=== PATIENT | male | born 1970 ===

== ENCOUNTER 2020-12-12 15:11 | Outpatient (REF) | payer MEDICAID, SELFPAY | END 2020-12-12 15:12 | disposition home or self-care (01) | LOC: HO.LAB 15:11 | PROVIDERS: Visit Provider Internal Medicine | DX: Z20.822 Contact with and (suspected) exposure to COVID-19 (principal) | CPT/HCPCS: 36415; C9803; U0003; U0005 ==

== ENCOUNTER 2021-01-24 09:02 | Outpatient (REF) | payer MEDICAID, SELFPAY ==
--- NOTE | ~2021-01-24 | XR_ITS ---
EXAMINATION: XR HAND, LEFT CLINICAL INFORMATION: Left hand pain COMPARISON: None TECHNIQUE: PA, lateral, and oblique views of the left hand. FINDINGS: No acute fracture. Diffuse osteopenia. Fusion of the 1st interphalangeal joint. Evaluation of the phalanges is limited due to flexion at the PIP joints. Probable inflammatory arthritis of the 4th PIP joint which may be active, with soft tissue swelling. No suspicious soft tissue calcifications. XR/XR hand LT min 3V IMPRESSION: Possible active inflammatory arthritis of the 4th PIP joint. Probable remote inflammatory arthritis of the 1st interphalangeal joint with fusion. Diffuse osteopenia. No acute fracture.
[2021-01-24 10:11] LABS: Hematocrit 38.9 % (42-52); Hemoglobin 12.7 g/dl (14.0-18.0); Mean Corpuscular HGB Conc 32.6 g/dl (31.0-36.0); Mean Corpuscular Hemoglobin 31.5 pg (27.0-33.0); Mean Corpuscular Volume 96.5 fL (80-98); Mean Platelet Volume 9.8 fL (9.4-12.4); Platelet Count 244 X10*3/uL (160-400); Red Blood Count 4.03 X10*6/uL (4.60-5.80); Red Cell Distribution Width 11.7 % (11.0-16.0); White Blood Count 3.9 X10*3/uL (4.8-10.8)
[2021-01-24 10:30] LABS: Alanine Aminotransferase 19 U/L (0-40); Albumin Level 4.3 g/dL (3.5-5.0); Alkaline Phosphatase 84 U/L (39-117); Anion Gap 12 (12-20); Aspartate Amino Transferase 20 U/L (5-37); Bilirubin Total 0.8 mg/dL (0.0-1.0); Blood Urea Nitrogen 21 mg/dL (9-16); Calcium 9.3 mg/dL (8.4-10.2); Carbon Dioxide 31 mmol/L (22-29); Chloride 107 mmol/L (96-108); Cholesterol 213 mg/dL; Estimated Glomerular Filt Rate > 60; Glucose Random 124 mg/dL (60-115); HDL Cholesterol 39 mg/dL; LDL Cholesterol Calculated 156 mg/dl; Potassium 4.5 mmol/L (3.3-5.1); Sodium 145 mmol/L (135-145); Total Protein 7.6 g/dL (6.5-8.0); Triglycerides 90 mg/dL
[2021-01-24 10:49] LABS: Thyroid Stimulating Hormone 1.49 uIU/mL (0.32-4.0)
[2021-01-24 11:10] LABS: Erythrocyte Sedimentation Rate 11 MM/HR (0-15)
== END 2021-01-24 09:03 | disposition home or self-care (01) ==
LOC: HO.LAB 09:02
PROVIDERS: PCP Internal Medicine; Visit Provider Internal Medicine
DX: E78.00 Pure hypercholesterolemia, unspecified (principal); I10 Essential (primary) hypertension; M79.642 Pain in left hand
CPT/HCPCS: 36415; 73130; 80053; 80061; 84443; 84550; 85027; 85652

== ENCOUNTER → 2021-05-15 12:48 | Outpatient (BNVA) | payer MEDICAID, SELFPAY | PROVIDERS: PCP Internal Medicine; Referring Provider Internal Medicine; Visit Provider Nurse Practitioner Family | DX: Z12.11 Encounter for screening for malignant neoplasm of colon (principal) | CPT/HCPCS: 99202 ==

== ENCOUNTER 2021-07-05 10:11 | Day surgery (SDC) | payer MEDICAID, SELFPAY ==
[2021-07-05 10:32] VITALS: BP 159/76; PULSE 57; RESP 18; TEMP 36.4; O2SAT 96; BMI 29.9
--- NOTE | 2021-07-05 10:35 | PC.NURSE ---
no meds taken today
--- NOTE | 2021-07-05 10:57 | P.CONAN_ITS ---
[facility] Past Medical History Medical History (Updated 06/29/21 @ 14:49 by Allie Lara, RN) Anemia Arthritis HTN (hypertension) Hypercholesterolemia Family History Family history of problems with anesthesia: No Surgical History Surgical History (Updated 06/29/21 @ 14:49 by Allie Lara, RN) No significant past surgical history History of Problems with Anesthesia: No Social History Social History Patient Tobacco Use Status: Never used Tobacco Use of substances other than those prescribed or required for medical reasons: No Have you been hit, kicked, punched, or otherwise hurt by someone within the past year? If so, by whom?: No Are you DNR?: No Advance Directives: No Advance Directives Information Provided: No Recently lost weight without trying: No Nutrition Risks: No Nutritional Risk Meds Allergies Allergy/AdvReac Type Severity Reaction Status Date / Time No Known Allergies Allergy Verified 06/29/21 14:49 Home Medications Medication Instructions Recorded Confirmed Last Taken Type amlodipine 5 mg tablet 5 mg PO DAILY 05/15/21 06/29/21 Unknown History simvastatin 40 mg tablet 40 mg PO QPM 05/15/21 06/29/21 Unknown History Exam Exam Date and Time: July 05, 2021 1057 Height,Weight and Vital Signs: Height 5 ft 8 in Weight 89.358 kg Last Vital Signs Temp 97.5 F 07/05/21 10:32 Pulse 57 07/05/21 10:32 Resp 18 07/05/21 10:32 BP 159/76 H 07/05/21 10:32 Pulse Ox 96 07/05/21 10:32 Airway Mallampati Class: II TM Dist: >3cm Neck ROM: Full Heart: rrr Lungs: cta Assessment and Plan Assessment Anesthesia Assessment: Anesthesia Plan Discussed and Chart Reviewed Final Anesthetic Review Family History of Problems with Anesthesia: No History of Problems with Anesthesia: No NPO: Yes ASA Class: II Final Preanesthetic Review: No Changes in Pt Med Stat, Meds/Allgs Chart Reviewed and Consent Obtained/Reviewed Patient Risk: Intermediate Procedure Risk: Intermediate Anesthetic Plan Anesthetic Plan: MAC: Disposition: Standard PACU
[2021-07-05] MEDS: Lactated Ringers 1,000 ML 50 ML IVCONT (11:01)
--- NOTE | 2021-07-05 11:27 | MHC.SHP ---
Pre-Procedural Eval Section A Date of Service: 07/05/21 Section B Chief Complaint: Screening Relevant Family History (Specify if Yes): No Relevant Social History: None Present Medications: see Short Stay Collaborative assessment Medical History: Significant History (Anemia Arthritis HTN (hypertension) Hypercholesterolemia) History of Previous Operations: No relevant previous surgery Allergies: Allergies Allergy/AdvReac Type Severity Reaction Status Date / Time No Known Allergies Allergy Verified 06/29/21 14:49 Review of Systems Sugical H&P ROS: Negative: Constitution, Cardiovascular, Respiratory, Neurological, Psychiatric, Hem-Onc, Allergic/Immunologic, Gastrointestinal, Genitourinary, Musculoskeletal, Integumentary, Endocrine and Eyes/Ears/Nose/Throat Exam Surgical H&P Exam: Normal: HEENT, Normal: Heart, Normal: Lungs, Normal: Extremities, Normal: Abdomen, Normal: Skin and Normal: Neurological Plan Diagnosis/Plan: Unchanged I have reviewed the history and physical and performed a pertinent physical examination on my patient. No changes have occurred unless specified.
--- NOTE | 2021-07-05 11:28 | P.OP_ITS ---
Operative Note Operative Note Date of Service: 07/05/21 Narrative: Operative Information Procedure Description: Colonoscopy COLONOSCOPY Instrument: Olympus variable stiffness pediatric scope 190L Colonoscopy Monitoring: Vital signs and clinical assessment, continuous EKG monitoring, Pulse oximetry, Carbon Dioxide monitoring and blood pressure monitoring were done throughout the procedure. Colon withdrawal time was 11 minutes. Procedure: The patient was placed in the left lateral decubitis position and pre-procedure medications were administered. After a digital rectal examination of the ano-rectum, the video colonoscope was inserted into the rectum and advanced through the colon to the cecum/TI. The colonoscope was slowly withdrawn in a retrograde panoramic fashion and the colon mucosa was carefully examined including a retroflexed view of the rectum. Findings and interventions are described below. Procedure Difficulty:moderate, pressure applied to get to cecum Findings: Terminal Ileum-normal Cecum:normal Ascending Colon: normal, few diverticula seen Transverse Colon -normal Descending Colon: 8-10 mm sessile polyp removed with cold snare Sigmoid Colon: scattered diverticula noted Rectum: Retroflexion with moderate sized internal hemorrhoids, grade I Anorectum - normal Colon preparation: [place] Bowel Preparation Scale Right colon; 2 Transverse colon: 2 Left colon; 1 (0 = Unprepared colon segment with mucosa not seen due to solid stool that ca nnot be cleared. 1 = Portion of mucosa of the colon segment seen, but other areas of the colon segment not well seen due to staining, residual stool and/or opaque liquid. 2 = Minor amount of residual staining, small fragments of stool and/or opaque liquid, but mucosa of colon segment seen well. 3 = Entire mucosa of colon segment seen well with no residual staining, small fragments of stool or opaque liquid) Impression and Post Procedure Diagnosis: polyp internal hemorrhoids diverticular disease Plan: High fiber diet leaflet Avoid straining at stool, epsom salts and sitz bath, anusol supps or cream Repeat Colonoscopy in 5 years due to left sided prep or earlier if clinically indicated Above findings were reviewed with the patient and relevant handouts were provided if indicated.
--- NOTE | 2021-07-05 11:28 | PM.OP ---
Brief Operative Note Date of Service: 07/05/21 Pre-op diagnosis: colon screening Post-op diagnosis: same Procedure: see op note Surgeon: Ariel Gacsa MD Anesthesia: MAC Was an Bench Molder Apprentice used for this Procedure?: No Estimated blood loss (mL): 0 Condition: stable Disposition: PACU
[2021-07-05 12:07] VITALS: BP 111/69; PULSE 70; RESP 16; TEMP 36.8; O2SAT 94
[2021-07-05 12:22] VITALS: BP 129/78; PULSE 50; RESP 16; TEMP 36.2; O2SAT 97
== END 2021-07-05 13:01 ==
LOC: HO.SSS 10:12
PROVIDERS: PCP Internal Medicine Gastroenterology; Visit Provider Internal Medicine Gastroenterology
PROC: 0DJD8ZZ Inspection of Lower Intestinal Tract, Via Natural or Artificial Opening Endoscopic (ICD-10-PCS; CPT 45378; principal; 2021-07-05 11:40)
DX: Z12.11 Encounter for screening for malignant neoplasm of colon (principal); K63.5 Polyp of colon; K57.30 Diverticulosis of large intestine without perforation or abscess without bleeding; K64.0 First degree hemorrhoids; I10 Essential (primary) hypertension
CPT/HCPCS: 45380; 88305

== ENCOUNTER 2022-06-22 11:55 | Outpatient (REF) | payer MEDICAID, SELFPAY ==
[2022-06-22 12:25] LABS: COVID-19 Test Negative (Negative)
== END 2022-06-22 11:56 | disposition home or self-care (01) ==
LOC: HO.LAB 11:55
PROVIDERS: Visit Provider Internal Medicine
DX: Z20.822 Contact with and (suspected) exposure to COVID-19 (principal)
CPT/HCPCS: 87635; C9803

== ENCOUNTER 2023-04-10 12:25 | Outpatient (REF) | payer MEDICAID, SELFPAY ==
--- NOTE | ~2023-04-10 | XR_ITS ---
EXAMINATION: XR HAND, RIGHT CLINICAL INFORMATION: Pain in right hand COMPARISON: None available. TECHNIQUE: PA, lateral, and oblique views of the right hand. FINDINGS: The bones are intact. No fracture. Alignment is anatomic. There is mild degenerative change of the second metacarpophalangeal joint. The radiocarpal joint is narrow. There is a 1.6 cm soft tissue protrusion along the dorsal aspect of the proximal phalanx of the middle finger, just proximal to the PIP joint. XR/XR hand RT min 3V IMPRESSION: 1. No acute bony abnormality. 2. Soft tissue protrusion along the dorsal aspect of the proximal phalanx of the middle finger. Ultrasound could be obtained for further evaluation.
== END 2023-04-10 12:26 | disposition home or self-care (01) ==
LOC: HO.HOSX 12:25
PROVIDERS: Visit Provider Physician Assistant
DX: M79.641 Pain in right hand (principal); R22.31 Localized swelling, mass and lump, right upper limb
CPT/HCPCS: 73130; 99202

== ENCOUNTER 2023-04-29 09:21 | Day surgery (SDC) | payer MEDICAID, SELFPAY ==
[2023-04-29 10:03] VITALS: BP 145/88; PULSE 60; RESP 18; TEMP 36.3; O2SAT 95; BMI 28.2
--- NOTE | 2023-04-29 10:47 | W.PM.OPN ---
Operative Note Operative Note Date of Service: 04/29/23 Narrative: Operative Note Preop diagnosis: 1. right middle finger dorsal PIP mass Postop diagnosis: same Procedure: 1. right middle finger excision of dorsal PIP mass , and debulking of gouty tophi from an extensor tendon mechanism Surgeon: Ludy Burgess MD Anesthesia: digital block using 1% lidocaine with epinephrine Findings: both more liquid and more solid forms of gouty tophi. Gouty tophi invasion of the extensor mechanism involving both the central extensor tendon and also the lateral bands. EBL: Less than 5 mL Tourniquet time: None Specimens: right middle finger mass sent for histopathology Complications: None Disposition: Brought to recovery room in stable condition Plan: Follow-up for 7-10 days for wound check and suture removal and to check Cultures and pathology It is imperative that the patient have a good conversation with his primary care physician about good medical management of his gout to avoid further damage to the joints and extensor mechanisms of the hands. Indications: The patient is 52 years old, with right middle finger dorsal PIP mass . The risks and benefits of operative treatment including but not limited to risk of damage to blood vessels, nerves, tendons, infection, persistent pain, persistent symptoms, recurrence or possible need for additional surgery were discussed with the patient and the patient wishes to proceed with surgery. Procedure: Once consent was obtained a digital block was performed in the preop area using a combination of 1% lidocaine with epinephrine. The patient was then brought back to the operating suite and placed on the operative table in supine position. A tourniquet was applied to the proximal aspect of the right upper extremity and the limb was prepped and draped in a standard surgical fashion. the tourniquet was not inflated during the case. Once assured we had a good block I then made a lazy-S incision over the dorsal aspect of the right middle finger PIP joint. Incision was made through the skin to the subcutaneous tissues using a 15. Blade. I immediately found white gritty fluid material most likely consistent with tophaceous gout. I took a culture of this material. Further dissection down to the level of the extensor tendons showed gouty tophi invasion of both the central extensor tendon and also of the lateral bands. There was significant involvement in these structures , however the extensor mechanisms were intact. I then carefully debulked both the central extensor tendon and the radial lateral band using iris scissors and a small rongeur. I sent some of this material for histopathologic review. Once satisfied with Our debridement, excision and extensor mechanism to bulking of the extensor mechanism, and the wound was copiously irrigated with normal saline and hemostasis was obtained with a brief period of local pressure. The skin edges were reapproximated with some 5.0 nylon suture material and a sterile dressing was applied. The patient appears to have tolerated the procedure well and with no complications. All digits were well vascularized at the conclusion of the case.
--- NOTE | 2023-04-29 11:35 | MHC.SHP ---
Pre-Procedural Eval Section A Date of Service: 04/29/23 The patient is an INPATIENT: No Changes since office visit: No Cold of Flu in the past 2 weeks, No New Medical Problems, No Changes in Medication and No Patient answered all questions The History & Physical has been completed within 30 days and I have reviewed it.: Yes Section B Chief Complaint: Localized swelling, mass and lump, right upper decker Allergies: Allergies Allergy/AdvReac Type Severity Reaction Status Date / Time No Known Allergies Allergy Verified 04/10/23 13:52 Plan I have reviewed the history and physical and performed a pertinent physical examination on my patient. No changes have occurred unless specified. Time Spent With Patient Time: Total time managing care of this patient today ____ minutes.
[2023-04-29 12:03] VITALS: BP 129/77; PULSE 89; RESP 18; O2SAT 96
== END 2023-04-29 12:05 | disposition home or self-care (01) ==
PROVIDERS: PCP Family Medicine; Visit Provider Orthopaedic Surgery
PROC: (CPT 28024; principal; 2023-04-29 12:20)
DX: M1A.9XX1 Chronic gout, unspecified, with tophus (tophi) (principal); R22.31 Localized swelling, mass and lump, right upper limb; M79.641 Pain in right hand; M19.90 Unspecified osteoarthritis, unspecified site; D64.9 Anemia, unspecified; I10 Essential (primary) hypertension; E78.00 Pure hypercholesterolemia, unspecified
CPT/HCPCS: 28024; 87070; 87205; 88305; J0171

== ENCOUNTER 2023-05-14 13:59 | Outpatient (AMB) | payer MEDICAID, SELFPAY ==
--- NOTE | 2023-05-14 14:02 | MHC.OFFVIS ---
Intake Vital Signs 05/14/23 14:04 Height 5 ft 7 in Weight 180 lb BMI 28.2 Intake Visit Reasons: PO R MF Mass Exc 04/29/23 AR Intake Note: Martínez 52 yr old male presents today for his P/O visit for his Right middle finger mass removal from 04/29/[address] Burgess. States he has very little discomfort. Sutures removed and steri strips applied. Allergies No Known Allergies Allergy (Verified 05/14/23 14:14) HPI PO R MF Mass Exc 04/29/23 AR HPI Details Martínez is a 52 year old right hand dominant Tajik speaking man who presents S/P right middle finger mass excision, DOS: 04/29/23. He says he is doing well without any complaints. He has some mild stiffness in his finger. He reports having a Hx of gout and is taking medication for this. It is unclear how often he gets gouty flare-ups in a month, sounds like possibly a few times a month, but this affects both his hands & his feet. It does not sound like he sees his primary care doctor very often [facility] Medical History Anemia Arthritis HTN (hypertension) Hypercholesterolemia Surgical History No significant past surgical history Social History Patient Tobacco Use Status: Never used Tobacco Review of Systems Const All systems reviewed & are unremarkable except as noted in HPI and below Physical Exam Vital Signs: BMI result Body Mass Index 28.2 Const General: no acute distress and alert Orientation/consciousness: patient oriented x3 Neuro General: patient oriented x3 Extrem Other: The patient was alert oriented and in no acute distress The incision is healing well with no erythema drainage or evidence of infection. Sutures removed and Steri-Strips applied He can make a fist and extend all his digits. Initially his ring and middle finger were only brought ~2-3cm from his palm. We worked on ROM exercises today in clinic, and before leaving he could make a good fist and place his hand flat on the table Sensation is intact Cap refill is brisk Pathology report: From 04/29/23 Diagnosis Soft tissue, right middle finger, excision:? Fibrous tissue with acellular material and chronic inflammation consistent with tophaceous gout. Operative findings: DOS: 04/29/23 Both more liquid and more solid forms of gouty tophi.? Gouty tophi invasion of the extensor mechanism involving both the central extensor tendon and also the lateral bands. 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 Right middle finger dorsal PIP mass, S/P gouty tophi excision DOS: 04/29/23 With some invasion of the extensor tendon seen at the time surgery The patient appears to be doing well post-operatively He has good extensor tendon function I educated him about the post-operative course I discussed activity modifications, he is to lift nothing heavier than a cellphone for the next two weeks He will perform gentle ROM exercises at home He should avoid any underwater activities for the next 5 days He should gently massage about the incision site to reduce the risk of hypersensitivity He can follow up prn 2. Gout It sounds like he is still having fairly frequent flare ups. Patient reports he is on PO medication for this, but continues to have attacks affecting his hands & feet I referred him to our Rheumatology department at [place] for a consult, to hopefully help him better control his gout. Scribed for Ludy Burgess MD by Napoleon Ding, medical technicians, on 05/14/23 at 2:35 PM, EST. 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
[2023-05-14 14:04] VITALS: BMI 28.2
== END 2023-05-14 14:50 | disposition home or self-care (01) ==
PROVIDERS: PCP Internal Medicine Gastroenterology; Visit Provider Orthopaedic Surgery
DX: M1A.9XX1 Chronic gout, unspecified, with tophus (tophi) (principal)
CPT/HCPCS: 99024

== ENCOUNTER → 2023-05-14 13:59 | Outpatient (BNVA) | payer MEDICAID, SELFPAY | PROVIDERS: PCP Internal Medicine Gastroenterology; Visit Provider Orthopaedic Surgery ==

== ENCOUNTER 2023-08-16 08:41 | Outpatient (AMB) | payer MEDICAID, SELFPAY ==
[2023-08-16 08:49] VITALS: BP 130/100; PULSE 87; TEMP 36.6; O2SAT 98; BMI 30.7
--- NOTE | 2023-08-16 08:49 | A.OFFVIS_ITS ---
Intake Vital Signs 08/16/23 08:49 Height 5 ft 7 in Weight 196 lb 3.382 oz BMI 30.7 BP 130/100 H Blood Pressure Location Lt brachial Position Sitting Pulse 87 Temp 97.8 F Temp Source Skin Pulse Oximetry (%) 98 Oxygen Delivery Method Room Air Intake Visit Reasons: Gout Intake Note: New pt presents today for gout consult, referred by Ortho. Water Proofer Required: Yes Water Proofer Language: Application Integration Engineer Name: Isabel Information Interpreted: non-clinical & clinical Accompanied by: Significant Other Allergies No Known Allergies Allergy (Verified 08/16/23 08:51) Medication List - Last Reconciled 08/16/23 by Ruben Buckner MD amlodipine 5 mg PO DAILY bisacodyl (Dulcolax (bisacodyl)) 10 mg (2 x 5 mg) PO ONCE 1 day celecoxib 200 mg PO famotidine 20 mg PO BEDTIME polyethylene glycol 3350 (Miralax) 238 grams PO ONCE simvastatin 40 mg PO QPM HPI HPI Comments History of Present Illness Details This is a 53-year-old male who presents for gout evaluation. He was referred by hand surgery. Four months ago patient was evaluated by hand surgery for swelling in his right middle finger. Pathology showed gout tophus. Patient is not a good historian. He states that he believes he started having gout attacks affecting his ankles, feet, left knee and right hand 5-10 years ago. Stated that he was diagnosed with gout 5 years ago. Does not recall whether he was ever put on specific treatment for gout. States that currently he gets gout flare-ups every 1-2 weeks and the last few days. Currently they affect his right hand, right wrist and left knee. Per he also is having an open wound that drains chalky material in his left big toe. He denies any history of kidney stones. States that he drinks only on occasion such as [place]. 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 Review of Systems Musc Reports arthralgias, Reports joint swelling, Reports limited range of motion and Reports stiffness Skin/Breast Reports non-healing lesions and Reports wounds Physical Exam Vital Signs: BMI result Body Mass Index 30.7 Const General: cooperative, healthy appearing and comfortable Nutritional Appearance: overweight Orientation/consciousness: patient oriented x3 Limitations: no limitations HEENT Head: Yes normocephalic and Yes atraumatic Mouth: moist mucous membranes Resp Effort & Inspection: normal respiratory effort and able to speak in complete sentences Auscultation: clear to auscultation bilaterally Cardio Rate: regular rate Rhythm: regular rhythm GI Inspection: No distended Palpation (GI): Soft to palpation Neuro General: patient oriented x3 Extrem Other: Deformity of his right hand with contracture of his PIPs, per this was an accident as a child Tophi on right 2nd PIP No active synovitis in the left hand or wrist Right wrist swelling warmth and tenderness and pain with flexion and extension Right 2nd MCP swelling and tenderness No tophi on elbows No tophi on years Normal range of motion of right knee Limited left knee flexion with some pain with flexion No swelling or warmth No ankle swelling or tenderness bilaterally Open skin lesion of left big toe containing chalky material (tophus) Not infected Results Reviewed Results Reviewed: Pathology report: From 04/29/23 Diagnosis Soft tissue, right middle finger, excision:? Fibrous tissue with acellular material and chronic inflammation consistent with tophaceous gout. Operative findings: DOS: 04/29/23 Both more liquid and more solid forms of gouty tophi.? Gouty tophi invasion of the extensor mechanism involving both the central extensor tendon and also the lateral bands. Assessment & Plan Assessment & Plan (1) Gout: Code(s): M10.9 - Gout, unspecified Qualifiers: Gout site: multiple sites Gout etiology: idiopathic Chronicity: chronic Presence of tophus: with tophus Qualified Code(s): M1A.09X1 - Idiopathic chronic gout, multiple sites, with tophus (tophi) Plan: This is a 53-year-old male who was referred by hand surgery for evaluation of gout. Patient had a right middle finger mass that was excised, pathology consistent with gouty tophus. Patient is not a good historian. Per patient gout started 5-10 years ago. He was diagnosed with 5 years ago. He does not recall whether he was ever on any specific treatment for gout. Per patient seems to get gout flares few times a month lasting a few days, currently affect his right wrist, right hand and left knee. Patient has multiple tophi, he has an open wound in his left big toe containing tophaceous material. Not acutely infected. Will check basic labs. Check x-rays of knees and feet. Will refer patient to podiatry for evaluation of tophus excision in his left big toe Follow-up in 2 weeks Orders: Orders Complete Blood Count Auto Diff Today M10.9 - Gout, unspecified C Reactive Protein Today M10.9 - Gout, unspecified Erythrocyte Sedimentation Rate Today M10.9 - Gout, unspecified Uric Acid Today M10.9 - Gout, unspecified XR knee LT 3V Today M10.9 - Gout, unspecified Comprehensive Met. Panel Today M10.9 - Gout, unspecified XR knee RT 3V Today M10.9 - Gout, unspecified XR knee standing BI Today M10.9 - Gout, unspecified XR foot LT min 3V Today M10.9 - Gout, unspecified XR foot RT min 3V Today M10.9 - Gout, unspecified Referrals Podiatry Referral M10.9 - Gout, unspecified Coding Level of Care Code New Pt Level 4 (84496) Diagnoses Idiopathic chronic gout of multiple sites with tophus M1A.09X1 Gout site: multiple sites Gout etiology: idiopathic Chronicity: chronic Presence of tophus: with tophus
== END 2023-08-16 09:15 | disposition home or self-care (01) ==
PROVIDERS: PCP Internal Medicine; Visit Provider Student in an Organized Health Care Education/Training Program
DX: M1A.09X1 Idiopathic chronic gout, multiple sites, with tophus (tophi) (principal)
CPT/HCPCS: 99204

== ENCOUNTER → 2023-08-16 08:41 | Outpatient (BNVA) | payer MEDICAID, SELFPAY | PROVIDERS: PCP Internal Medicine Gastroenterology; Visit Provider Student in an Organized Health Care Education/Training Program ==

== ENCOUNTER 2023-08-16 09:44 | Outpatient (REF) | payer MEDICAID, SELFPAY ==
[2023-08-16 11:45] LABS: MANUAL DIFF FLAG NO
[2023-08-16 11:58] LABS: Eosinophils Absolute Auto 0.1 X10*3/uL (0.0-0.4); Eosinophils Percent Auto 3.3 % (0-4); Hematocrit 38.1 % (42.0-52.0); Hemoglobin 12.6 g/dl (14.0-18.0); Imm Gran Abs Auto 0.03 X10*3/uL (0.00-0.03); Imm Gran Pct Auto 0.8 % (0.0-0.4); Lymphocytes Absolute Auto 1.6 X10*3/uL (1.2-4.9); Lymphocytes Percent Auto 39.7 % (20-40); Mean Corpuscular HGB Conc 33.1 g/dl (31.0-36.0); Mean Corpuscular Hemoglobin 31.3 pg (27.0-33.0); Mean Corpuscular Volume 94.8 fL (80.0-98.0); Mean Platelet Volume 10.3 fL (9.4-12.4); Monocytes Absolute Auto 0.3 X10*3/uL (0.1-1.2); Monocytes Percent Auto 8.4 % (2-11); Neutrophils Absolute Auto 1.9 x10*3/uL (2.0-8.3); Neutrophils Percent Auto 46.8 % (45-73); Platelet Count 269 X10*3/uL (160-400); Red Blood Count 4.02 X10*6/uL (4.60-5.80); Red Cell Distribution Width 11.8 % (11.0-16.0)
[2023-08-16 12:26] LABS: Alanine Aminotransferase 19 U/L (0-40); Alkaline Phosphatase 75 U/L (39-117); Anion Gap 13 (12-20); Aspartate Amino Transferase 18 U/L (5-37); Bilirubin Total 0.7 mg/dL (0.0-1.0); Blood Urea Nitrogen 12 mg/dL (9-16); C Reactive Protein 0.35 mg/dL (< or = 0.50); Calcium 9.2 mg/dL (8.4-10.2); Carbon Dioxide 27 mmol/L (22-29); Chloride 109 mmol/L (96-108); Estimated Glomerular Filt Rate > 60; Glucose Random 118 mg/dL (60-115); Potassium 4.2 mmol/L (3.3-5.1); Sodium 145 mmol/L (135-145); Total Protein 7.4 g/dL (6.5-8.0)
[2023-08-16 12:41] LABS: Erythrocyte Sedimentation Rate 17 MM/HR (0-15)
[2023-08-16 12:49] LABS: Uric Acid 10.1 mg/dL (3.4-7.0)
== END 2023-08-16 09:45 | disposition home or self-care (01) ==
LOC: HO.10HDL 09:44
PROVIDERS: Visit Provider Student in an Organized Health Care Education/Training Program
DX: M1A.09X1 Idiopathic chronic gout, multiple sites, with tophus (tophi) (principal)
CPT/HCPCS: 36415; 80053; 84550; 85025; 85652; 86140

== ENCOUNTER 2023-08-20 08:17 | Outpatient (REF) | payer MEDICAID, SELFPAY ==
--- NOTE | ~2023-08-20 | XR_ITS ---
EXAMINATION: XR KNEES, BILATERAL XR FEET, BILATERAL CLINICAL INFORMATION: Gout, pain. COMPARISON: Left knee 11/26/2017. TECHNIQUE: 3 views of each foot. AP standing view of bilateral knees. 3 views of each knee. FINDINGS: RIGHT FOOT: Mild dorsal calcaneal spurring. Advanced degenerative changes with hypertrophic change at the midfoot. Mild spurring along the proximal medial shaft of the right 4th metatarsal and lateral proximal shaft of the 3rd metatarsal. Toes are flexed, limiting evaluation. Bones are demineralized. Mild degenerative changes in the 1st metatarsophalangeal joint and interphalangeal joint with mild joint space narrowing. LEFT FOOT: Mild dorsal calcaneal spurring. Advanced degenerative changes with hypertrophic change in the midfoot. Toes are flexed, limiting evaluation. Bones are demineralized. Mild degenerative changes in the 1st metatarsophalangeal joint and interphalangeal joint with mild joint space narrowing. Ulceration along the medial base of the left 1st metatarsal with spurring. LEFT KNEE: Small tricompartmental osteophytes. Trace joint effusion. Small quadriceps enthesophyte. Mild medial and lateral joint space narrowing. RIGHT KNEE: Trace joint effusion. Small quadriceps enthesophyte. Mild hypertrophic change along the proximal medial aspect of the tibia. XR/XR knee RT 3V IMPRESSION: 1. Degenerative changes in the bilateral feet. 2. Mild degenerative changes in the bilateral knees, left greater than right.
--- NOTE | ~2023-08-20 | XR_ITS ---
EXAMINATION: XR KNEES, BILATERAL XR FEET, BILATERAL CLINICAL INFORMATION: Gout, pain. COMPARISON: Left knee 11/26/2017. TECHNIQUE: 3 views of each foot. AP standing view of bilateral knees. 3 views of each knee. FINDINGS: RIGHT FOOT: Mild dorsal calcaneal spurring. Advanced degenerative changes with hypertrophic change at the midfoot. Mild spurring along the proximal medial shaft of the right 4th metatarsal and lateral proximal shaft of the 3rd metatarsal. Toes are flexed, limiting evaluation. Bones are demineralized. Mild degenerative changes in the 1st metatarsophalangeal joint and interphalangeal joint with mild joint space narrowing. LEFT FOOT: Mild dorsal calcaneal spurring. Advanced degenerative changes with hypertrophic change in the midfoot. Toes are flexed, limiting evaluation. Bones are demineralized. Mild degenerative changes in the 1st metatarsophalangeal joint and interphalangeal joint with mild joint space narrowing. Ulceration along the medial base of the left 1st metatarsal with spurring. LEFT KNEE: Small tricompartmental osteophytes. Trace joint effusion. Small quadriceps enthesophyte. Mild medial and lateral joint space narrowing. RIGHT KNEE: Trace joint effusion. Small quadriceps enthesophyte. Mild hypertrophic change along the proximal medial aspect of the tibia. XR/XR foot RT min 3V IMPRESSION: 1. Degenerative changes in the bilateral feet. 2. Mild degenerative changes in the bilateral knees, left greater than right.
--- NOTE | ~2023-08-20 | XR_ITS ---
EXAMINATION: XR KNEES, BILATERAL XR FEET, BILATERAL CLINICAL INFORMATION: Gout, pain. COMPARISON: Left knee 11/26/2017. TECHNIQUE: 3 views of each foot. AP standing view of bilateral knees. 3 views of each knee. FINDINGS: RIGHT FOOT: Mild dorsal calcaneal spurring. Advanced degenerative changes with hypertrophic change at the midfoot. Mild spurring along the proximal medial shaft of the right 4th metatarsal and lateral proximal shaft of the 3rd metatarsal. Toes are flexed, limiting evaluation. Bones are demineralized. Mild degenerative changes in the 1st metatarsophalangeal joint and interphalangeal joint with mild joint space narrowing. LEFT FOOT: Mild dorsal calcaneal spurring. Advanced degenerative changes with hypertrophic change in the midfoot. Toes are flexed, limiting evaluation. Bones are demineralized. Mild degenerative changes in the 1st metatarsophalangeal joint and interphalangeal joint with mild joint space narrowing. Ulceration along the medial base of the left 1st metatarsal with spurring. LEFT KNEE: Small tricompartmental osteophytes. Trace joint effusion. Small quadriceps enthesophyte. Mild medial and lateral joint space narrowing. RIGHT KNEE: Trace joint effusion. Small quadriceps enthesophyte. Mild hypertrophic change along the proximal medial aspect of the tibia. XR/XR knee LT 4V IMPRESSION: 1. Degenerative changes in the bilateral feet. 2. Mild degenerative changes in the bilateral knees, left greater than right.
--- NOTE | ~2023-08-20 | XR_ITS ---
EXAMINATION: XR KNEES, BILATERAL XR FEET, BILATERAL CLINICAL INFORMATION: Gout, pain. COMPARISON: Left knee 11/26/2017. TECHNIQUE: 3 views of each foot. AP standing view of bilateral knees. 3 views of each knee. FINDINGS: RIGHT FOOT: Mild dorsal calcaneal spurring. Advanced degenerative changes with hypertrophic change at the midfoot. Mild spurring along the proximal medial shaft of the right 4th metatarsal and lateral proximal shaft of the 3rd metatarsal. Toes are flexed, limiting evaluation. Bones are demineralized. Mild degenerative changes in the 1st metatarsophalangeal joint and interphalangeal joint with mild joint space narrowing. LEFT FOOT: Mild dorsal calcaneal spurring. Advanced degenerative changes with hypertrophic change in the midfoot. Toes are flexed, limiting evaluation. Bones are demineralized. Mild degenerative changes in the 1st metatarsophalangeal joint and interphalangeal joint with mild joint space narrowing. Ulceration along the medial base of the left 1st metatarsal with spurring. LEFT KNEE: Small tricompartmental osteophytes. Trace joint effusion. Small quadriceps enthesophyte. Mild medial and lateral joint space narrowing. RIGHT KNEE: Trace joint effusion. Small quadriceps enthesophyte. Mild hypertrophic change along the proximal medial aspect of the tibia. XR/XR foot LT min 3V IMPRESSION: 1. Degenerative changes in the bilateral feet. 2. Mild degenerative changes in the bilateral knees, left greater than right.
== END 2023-08-20 08:18 | disposition home or self-care (01) ==
LOC: HO.XRAY 08:17
PROVIDERS: Visit Provider Student in an Organized Health Care Education/Training Program
DX: M10.9 Gout, unspecified (principal)
CPT/HCPCS: 73562; 73564; 73630

== ENCOUNTER 2023-09-05 09:36 | Outpatient (AMB) | payer MEDICAID, SELFPAY ==
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
[2023-09-05 09:42] VITALS: BP 124/76; PULSE 65; TEMP 36.3; O2SAT 95; BMI 30.7
== END 2023-09-05 09:59 | disposition home or self-care (01) ==
PROVIDERS: PCP Internal Medicine; Visit Provider Student in an Organized Health Care Education/Training Program
DX: M1A.09X1 Idiopathic chronic gout, multiple sites, with tophus (tophi) (principal); S91.102D Unspecified open wound of left great toe without damage to nail, subsequent encounter
CPT/HCPCS: 99214

== ENCOUNTER → 2023-09-05 09:36 | Outpatient (BNVA) | payer MEDICAID, SELFPAY | PROVIDERS: PCP Internal Medicine; Visit Provider Student in an Organized Health Care Education/Training Program | DX: M1A.09X1 Idiopathic chronic gout, multiple sites, with tophus (tophi) (principal); S91.102D Unspecified open wound of left great toe without damage to nail, subsequent encounter | CPT/HCPCS: 99212 ==

== ENCOUNTER 2023-11-07 08:23 | Outpatient (REF) | payer MEDICAID, SELFPAY ==
[2023-11-07 11:57] LABS: Erythrocyte Sedimentation Rate 10 MM/HR (0-15)
[2023-11-16 11:53] LABS: HLA-B 58:01 Typing Negative (Negative)
== END 2023-11-07 08:24 | disposition home or self-care (01) ==
LOC: HO.10HDL 08:23
PROVIDERS: Visit Provider Student in an Organized Health Care Education/Training Program
DX: M10.9 Gout, unspecified (principal); E78.00 Pure hypercholesterolemia, unspecified
CPT/HCPCS: 36415; 80053; 80061; 81381; 84550; 85025; 85652; 86140

== ENCOUNTER 2023-11-12 10:14 | Outpatient (AMB) | payer MEDICAID, SELFPAY ==
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
[2023-11-12 10:23] VITALS: BP 126/78; PULSE 65; TEMP 35.9; O2SAT 96; BMI 30.7
== END 2023-11-12 10:47 | disposition home or self-care (01) ==
PROVIDERS: PCP Internal Medicine; Referring Provider Internal Medicine; Visit Provider Student in an Organized Health Care Education/Training Program
DX: M1A.09X1 Idiopathic chronic gout, multiple sites, with tophus (tophi) (principal); E78.00 Pure hypercholesterolemia, unspecified
CPT/HCPCS: 99214

== ENCOUNTER → 2023-11-12 10:14 | Outpatient (BNVA) | payer MEDICAID, SELFPAY | PROVIDERS: PCP Internal Medicine; Visit Provider Student in an Organized Health Care Education/Training Program | DX: M1A.09X1 Idiopathic chronic gout, multiple sites, with tophus (tophi) (principal); E78.00 Pure hypercholesterolemia, unspecified | CPT/HCPCS: 99212 ==

== ENCOUNTER 2024-02-10 09:11 | Outpatient (REF) | payer MEDICAID, SELFPAY ==
[2024-02-10 10:41] LABS: MANUAL DIFF FLAG NO
[2024-02-10 10:51] LABS: Basophils Percent Auto 0.9 % (0-2); Eosinophils Absolute Auto 0.2 X10*3/uL (0.0-0.4); Eosinophils Percent Auto 3.7 % (0-4); Hematocrit 38.9 % (42.0-52.0); Hemoglobin 13.3 g/dl (14.0-18.0); Imm Gran Abs Auto 0.01 X10*3/uL (0.00-0.03); Imm Gran Pct Auto 0.2 % (0.0-0.4); Lymphocytes Absolute Auto 1.9 X10*3/uL (1.2-4.9); Lymphocytes Percent Auto 44.3 % (20-40); Mean Corpuscular HGB Conc 34.2 g/dl (31.0-36.0); Mean Corpuscular Hemoglobin 31.7 pg (27.0-33.0); Mean Corpuscular Volume 92.8 fL (80.0-98.0); Mean Platelet Volume 10.1 fL (9.4-12.4); Monocytes Absolute Auto 0.3 X10*3/uL (0.1-1.2); Monocytes Percent Auto 6.2 % (2-11); Neutrophils Percent Auto 44.7 % (45-73); Platelet Count 211 X10*3/uL (160-400); Red Blood Count 4.19 X10*6/uL (4.60-5.80); Red Cell Distribution Width 11.6 % (11.0-16.0); White Blood Count 4.4 X10*3/uL (4.8-10.8)
[2024-02-10 11:31] LABS: Alanine Aminotransferase 69 U/L (0-40); Albumin Level 4.1 g/dL (3.5-5.0); Alkaline Phosphatase 84 U/L (39-117); Anion Gap 8 (12-20); Aspartate Amino Transferase 39 U/L (5-37); Bilirubin Total 0.7 mg/dL (0.0-1.0); Blood Urea Nitrogen 17 mg/dL (9-16); Calcium 8.9 mg/dL (8.4-10.2); Carbon Dioxide 29 mmol/L (22-29); Chloride 109 mmol/L (96-108); Cholesterol 132 mg/dL (<200); Estimated Glomerular Filt Rate > 60; Glucose Random 116 mg/dL (60-115); HDL Cholesterol 36 mg/dL (>40); LDL Cholesterol Calculated 78 mg/dL (<100); Potassium 3.6 mmol/L (3.3-5.1); Sodium 142 mmol/L (135-145); Total Protein 7.2 g/dL (6.5-8.0); Triglycerides 91 mg/dL (<150); Uric Acid 5.7 mg/dL (3.4-7.0)
== END 2024-02-10 09:12 | disposition home or self-care (01) ==
LOC: HO.10HDL 09:11
PROVIDERS: Visit Provider Student in an Organized Health Care Education/Training Program
DX: M10.9 Gout, unspecified (principal); E78.00 Pure hypercholesterolemia, unspecified
CPT/HCPCS: 36415; 80053; 80061; 82550; 84550; 85025

== ENCOUNTER 2024-02-13 13:15 | Outpatient (AMB) | payer MEDICAID, SELFPAY ==
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
[2024-02-13 13:19] VITALS: BP 126/62; PULSE 73; O2SAT 97
== END 2024-02-13 14:02 | disposition home or self-care (01) ==
PROVIDERS: PCP Internal Medicine; Referring Provider Internal Medicine; Visit Provider Student in an Organized Health Care Education/Training Program
DX: M1A.09X1 Idiopathic chronic gout, multiple sites, with tophus (tophi) (principal); E78.00 Pure hypercholesterolemia, unspecified; R74.01 Elevation of levels of liver transaminase levels
CPT/HCPCS: 99214

== ENCOUNTER → 2024-02-13 13:15 | Outpatient (BNVA) | payer MEDICAID, SELFPAY | PROVIDERS: PCP Internal Medicine; Visit Provider Student in an Organized Health Care Education/Training Program | DX: M1A.09X1 Idiopathic chronic gout, multiple sites, with tophus (tophi) (principal); E78.00 Pure hypercholesterolemia, unspecified; R74.01 Elevation of levels of liver transaminase levels | CPT/HCPCS: 99212 ==

== ENCOUNTER 2024-05-14 13:56 | Outpatient (AMB) | payer MEDICAID, SELFPAY ==
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
[2024-05-14 14:07] VITALS: BP 130/72; PULSE 74; TEMP 36.3; O2SAT 94; BMI 30.6
== END 2024-05-14 14:47 | disposition home or self-care (01) ==
PROVIDERS: PCP Internal Medicine; Referring Provider Internal Medicine; Visit Provider Student in an Organized Health Care Education/Training Program
DX: M1A.09X1 Idiopathic chronic gout, multiple sites, with tophus (tophi) (principal); E78.00 Pure hypercholesterolemia, unspecified; R74.01 Elevation of levels of liver transaminase levels
CPT/HCPCS: 99214

== ENCOUNTER → 2024-05-14 13:56 | Outpatient (BNVA) | payer MEDICAID, SELFPAY | PROVIDERS: PCP Internal Medicine; Visit Provider Student in an Organized Health Care Education/Training Program ==

== ENCOUNTER 2024-05-14 16:00 | Outpatient (REF) | payer MEDICAID, SELFPAY ==
--- NOTE | ~2024-05-14 | US_ITS ---
EXAMINATION: US VENOUS ULTRASOUND WITH DOPPLER LOWER EXTREMITY, BILATERAL CLINICAL INFORMATION: Lower extremity edema and skin changes. Evaluate for deep vein thrombosis. COMPARISON: None available. TECHNIQUE: Ultrasound of the deep veins is performed from the hip to the calf with compression sonography and color and pulse Doppler assessment. Spectral analysis with color-flow imaging is performed. FINDINGS: RIGHT: There is normal venous compression and respiratory variation and augmented flow. The visualized common femoral vein, superficial femoral vein, profunda femoral vein, popliteal vein, and the trifurcation region shows no evidence of deep venous thrombosis. There is no significant popliteal fossa cyst. LEFT: There is normal venous compression and respiratory variation and augmented flow. The visualized common femoral vein, superficial femoral vein, profunda femoral vein, popliteal vein, and the trifurcation region shows no evidence of deep venous thrombosis. There is no significant popliteal fossa cyst. Within the proximal left thigh, there is an ovoid focus with a hypoechoic peripheral rim, likely representing a prominent lymph node. If the patient's symptoms persist, followup ultrasound in 5 days 7 days might be of value to exclude proximal propagation from a non-visualized calf vein. US/US venous duplex LE BI IMPRESSION: 1. No DVT demonstrated in the right and left lower extremity. 2. Probable prominent left proximal thigh lymph node.
== END 2024-05-14 16:01 | disposition home or self-care (01) ==
LOC: HO.US 16:00
PROVIDERS: Visit Provider Student in an Organized Health Care Education/Training Program
DX: R60.0 Localized edema (principal); M1A.09X1 Idiopathic chronic gout, multiple sites, with tophus (tophi); E78.00 Pure hypercholesterolemia, unspecified; R74.01 Elevation of levels of liver transaminase levels
CPT/HCPCS: 93970; 99212

== ENCOUNTER 2024-06-26 10:16 | Outpatient (REF) | payer MEDICAID, SELFPAY ==
[2024-06-26 14:19] LABS: MANUAL DIFF FLAG NO
[2024-06-26 14:45] LABS: Basophils Percent Auto 0.4 % (0-2); Eosinophils Percent Auto 0.4 % (0-4); Hematocrit 40.8 % (42.0-52.0); Hemoglobin 13.6 g/dl (14.0-18.0); Imm Gran Abs Auto 0.04 X10*3/uL (0.00-0.03); Imm Gran Pct Auto 0.6 % (0.0-0.4); Lymphocytes Absolute Auto 1.7 X10*3/uL (1.2-4.9); Lymphocytes Percent Auto 23.8 % (20-40); Mean Corpuscular HGB Conc 33.3 g/dl (31.0-36.0); Mean Corpuscular Hemoglobin 31.6 pg (27.0-33.0); Mean Corpuscular Volume 94.7 fL (80.0-98.0); Mean Platelet Volume 10.2 fL (9.4-12.4); Monocytes Absolute Auto 0.3 X10*3/uL (0.1-1.2); Monocytes Percent Auto 4.7 % (2-11); Neutrophils Percent Auto 70.1 % (45-73); Platelet Count 246 X10*3/uL (160-400); Red Blood Count 4.31 X10*6/uL (4.60-5.80); Red Cell Distribution Width 11.8 % (11.0-16.0); White Blood Count 7.1 X10*3/uL (4.8-10.8)
[2024-06-26 15:07] LABS: Alanine Aminotransferase 21 U/L (0-40); Albumin Level 4.1 g/dL (3.5-5.0); Alkaline Phosphatase 80 U/L (39-117); Anion Gap 13 (12-20); Aspartate Amino Transferase 21 U/L (5-37); Bilirubin Total 0.7 mg/dL (0.0-1.0); Blood Urea Nitrogen 14 mg/dL (9-16); Calcium 9.5 mg/dL (8.4-10.2); Carbon Dioxide 28 mmol/L (22-29); Chloride 104 mmol/L (96-108); Cholesterol 285 mg/dL (<200); Estimated Glomerular Filt Rate > 60; Glucose Random 107 mg/dL (60-115); HDL Cholesterol 47 mg/dL (>40); LDL Cholesterol Calculated 206 mg/dL (<100); Sodium 141 mmol/L (135-145); Total Protein 7.5 g/dL (6.5-8.0); Triglycerides 162 mg/dL (<150)
[2024-06-26 15:10] LABS: ~HepC Num1 0.17 S/CO (0.00-0.79); ~Hepatitis C Antibody Nonreactive (Nonreactive)
[2024-06-26 15:19] LABS: TSH reflex Free T4 0.73 uIU/mL (0.32-4.0)
== END 2024-06-26 10:17 | disposition home or self-care (01) ==
LOC: HO.CHCLDS 10:16
PROVIDERS: Visit Provider Internal Medicine
DX: I10 Essential (primary) hypertension (principal)
CPT/HCPCS: 36415; 80053; 80061; 84443; 85025; 86803

== ENCOUNTER 2024-08-04 13:47 | Outpatient (AMB) | payer MEDICAID, SELFPAY ==
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
[2024-08-04 13:57] VITALS: BP 122/72; PULSE 64; O2SAT 97; BMI 30.9
== END 2024-08-04 14:14 | disposition home or self-care (01) ==
PROVIDERS: PCP Internal Medicine; Referring Provider Internal Medicine; Visit Provider Student in an Organized Health Care Education/Training Program
DX: M1A.09X1 Idiopathic chronic gout, multiple sites, with tophus (tophi) (principal); E78.00 Pure hypercholesterolemia, unspecified; R74.01 Elevation of levels of liver transaminase levels
CPT/HCPCS: 99214

== ENCOUNTER → 2024-08-04 13:47 | Outpatient (BNVA) | payer MEDICAID, SELFPAY | PROVIDERS: PCP Internal Medicine; Visit Provider Student in an Organized Health Care Education/Training Program | DX: M1A.09X1 Idiopathic chronic gout, multiple sites, with tophus (tophi) (principal); E78.00 Pure hypercholesterolemia, unspecified; R74.01 Elevation of levels of liver transaminase levels | CPT/HCPCS: 99212 ==

== ENCOUNTER 2025-03-09 14:08 | Outpatient (REF) | payer MEDICAID, SELFPAY ==
--- NOTE | ~2025-03-09 | XR_ITS ---
EXAMINATION: XR SHOULDER, LEFT CLINICAL INFORMATION: Left shoulder pain after a fall. COMPARISON: None available. TECHNIQUE: AP external rotation, Grashey, scapular Y, and axillary views of the left shoulder. FINDINGS: Normal bone mineralization. No fracture, dislocation, or suspicious bone lesion. Normal alignment. The glenohumeral joint demonstrates mild degenerative arthritis. The AC joint demonstrates mild undersurface and superior surface spurring. There is a neutral lateral acromion. Small undersurface spurs. The subacromial space is preserved. Remainder of the soft tissue and bony structures appear normal. XR/XR shoulder LT min 2V IMPRESSION: No acute bony abnormalities. Mild degenerative findings left shoulder. Electronically signed by: Zeeshan Segovia MD 03/09/2025 03:11 PM EDT
--- OUTSIDE RECORDS SUMMARY | 2025-03-09 15:28 | XMS_ITS | Clinical Summary ---
Author Organization [facility] it Address [address] [place] [address] Care Team Providers Care Insurance Adjuster Name Role Phone Unavailable Primary Care Provider Unavailabl e Medical History Medical History Date Comments Arthritis DX:Arthritis Hypercholesterolemia DX:Hypercho lesterolemia Anemia DX:Anemia Essential (primary) hypertension DX:Essential (primary) hypertension Social History Tobacco Use Types Packs/Day Years Used Date Smoking Tobacco: Never Assessed Sex and Gender Information Value Date Recorded Sex Assigned at Not on file Legal Sex Male 4:48 PM EST Gender Identity Not on file Sexual Orientation Not on file Obstetrics History Last Filed Vital Signs Vital Sign Reading Time Taken Comments Blood Pressure - - Pulse - - Temperature - - Respiratory Rate - - Oxygen Saturation - - Inhaled Oxygen Concentration - - Weight 88.5 kg (195 lb) 11/28/2023 2:56 PM EST Height 170.2 cm (5' 7 ) 11/28/2023 2:56 PM EST Body Mass Index 30.54 11/28/2023 2:56 PM EST Plan of Treatment Health Maintenance Due Date Last Done Comments DTaP,Tdap,and Td Vaccines (1 - Tdap) 1988 Hepatitis B Vaccines (1 of 3 - 19+ 3-dose series) 1988 Pneumococcal Vaccine: 50+ Ye ars (1 of 1 - PCV) 2019 Zoster Vaccines (1 of 2) 2019 Cholesterol Screening (Lipid Panel) 12/03/2023 Colorectal Cancer Screening: Colonoscopy 12/03/2023 Depression Screening 12/03/2023 HIV Screening 12/03/2023 Hepatitis C Screening 12/03/2023 Social Influencers of Health Screening 12/03/2023 COVID-19 Vaccine ( - 2023-2 5 season) 2024 Influenza Vaccine (Season Ended) 2025 HIB Vaccines Aged Out No longer eligi ble based on patient's age to complete this topic HPV Vaccines Aged Out No longer eligi ble based on patient's age to complete this topic Hepatitis A Vaccines Aged Out No long er eligible based on patient's age to complete this topic IPV Vaccines Aged Out No longer eligi ble based on patient's age to complete this topic MMR Vaccines Aged Out No longer eligi ble based on patient's age to complete this topic Meningococcal ACWY Vaccine Aged Out N o longer eligible based on patient's age to complete this topic Meningococcal B Vaccine Aged Out No l onger eligible based on patient's age to complete this topic Pneumococcal Vaccine: Pediat rics (0 to 5 Years) and At-Risk Patients (6 to 64 Years) Aged Out No longer eligible b ased on patient's age to complete this topic RSV Immunization Patients Un nanci 20 months Aged Out No longer eligible b ased on patient's age to complete this topic Varicella Vaccines Aged Out No longer eligible based on patient's age to complete this topic
--- OUTSIDE RECORDS SUMMARY | 2025-03-09 15:28 | XMS_ITS | Clinical Summary ---
Author Organization [employer] Address [address] [place] [address] [address] [place] [address] Care Team Providers Care Pearl Peller Name Role Phone Angel Campbell MD Primary Care Provider [phone] Allergies No known active allergies Medications Diclofenac Sodium 1 % gelIndications: Chronic pain of both knees Apply 2 g topically 2 times daily. Apply 2G by topical route 2 times everyday to the affected area. 100 g 3 12/10/19 23 Active Blood Pressure kitIndications: Primary hypertension BP check daily 1 kit 06/24/20 24 Active famotidine (Pepcid) 20 MG tabletIndicatio ns:Gastroesopha geal reflux disease without esophagitis TAKE 1 TABLET BY MOUTH AT BEDTIME 90 tablet 12/29/19 25 Active celecoxib (CeleBREX) 200 MG capsuleIndicati ons:Chronic pain of both knees TAKE 1 CAPSULE (200 MG) BY MOUTH IF NEEDED IN THE MORNING AND AT BEDTIME FOR MODERATE PAIN NEEDED 180 capsule 12/29/19 25 Active allopurinol (Zyloprim) 100 MG tabletIndicatio ns:Chronic pain of both knees TAKE 2 TABLETS (200 MG) BY MOUTH 3 TIMES DAILY 540 tablet 12/29/19 25 Active amLODIPine (Norvasc) 5 MG tabletIndicatio ns:Primary hypertension Take 1 tablet (5 mg) by mouth in the morning. 90 tablet 3 03/09/20 25 Active simvastatin (Zocor) 40 MG tabletIndicatio ns:Hypercholest erolemia Take 1 tablet (40 mg) by mouth at bedtime. 90 tablet 3 03/09/20 25 Active simvastatin (Zocor) 40 MG tabletIndicatio ns:Hypercholest erolemia Take 1 tablet (40 mg) by mouth at bedtime. 90 tablet 3 06/24/20 24 025 Discontinued(Re order (will not trigger notification to Pharmacy)) amLODIPine (Norvasc) 5 MG tabletIndicatio ns:Primary hypertension TAKE 1 TABLET BY MOUTH EVERY DAY IN THE MORNING 90 tablet 01/13/20 25 025 Discontinued(Re order (will not trigger notification to Pharmacy)) Active Problems Problem Noted Date Diagnosed Date Chronic pain of both knees 01/08/2022 Chronic anemia 02/23/2021 Hypercholesterolemia 12/05/2017 Hypertensive disorder 12/05/2017 Encounters Date Type Department Care Team Description 03/09/2025 1:30 PM EDT Office Visit [facility] [address] [place] [address] Angel Campbell MD Acute pain of left shoulder (Primary Dx); Primary hypertension; Hypercholesterolemia; Dietary counseling; Exercise counseling; Class 1 obesity due to excess calories with serious comorbidity and body mass index (BMI) of 30.0 to 30.9 in adult 03/09/2025 Travel 03/02/2025 Patient Outreach [facility] [address] [place] [address] Angel Campbell MD Pre-visit Planning (Pre visit planning LVM ) 01/15/2025 Population Health Risk Score [facility] [address] [phone] Provider, Population Health Generic 01/12/2025 Refill [facility] [address] [place] [address] Angel Campbell MD Primary hypertension 12/28/2024 Refill [facility] [address] [place] [address] Angel Campbell MD Gastroesophageal reflux disease without esophagitis; Chronic pain of both knees from Last 3 Months Immunizations Name Administration Dates Next Due Influenza, seasonal, injectable, preservative fr ee 10/06/2024 Pneumococcal Conjugate PCV 20 06/24/2024 Family History Medical History Relation Name Comments Hypertension Father Hypertension Mother Relation Name Status Comments Father Mother Social History Tobacco Use Types Packs/Day Years Used Date Smoking Tobacco: Never Smokeless Tobacco: Never Tobacco Cessation:Counseling Given: No Depression Answer Date Recorded Patient Health Questionnaire-9 Score 0 12/03/2024 Patient Health Questionnaire-9 Score 0 12/03/2024 Last PHQ-9: Questionnaire Data Not on file 0 12/03/2024 Housing Stability Answer Date Recorded What is your housing situation today? I have lupillo cruz 06/16/[address] you li ve. Do you have problems with any of the following? None of the above 06/16/2024 Food Insecurity Answer Date Recorded Within the past 12 months, y ou worried that your food would run out before you got money to buy more: Never True 06/16/2024 Within the past 12 months,th e food you bought just didn't last and you didn't have enough money to get more: Never True Transportation Answer Date Recorded In the past 12 months, has l ack of transportation kept you from medical appts, meetings, work or from getting things needed for daily living? No 06/16/2024 Utilities Answer Date Recorded In the past 12 months, has t he electric, gas, oil or water company threatened to shut off services in your home? No 06/16/2024 Depression Answer Date Recorded Patient Health Questionnaire-2 Score 0 12/03/2024 Internet Access Answer Date Recorded Internet Access Q1 I am not sure 12/03/2024 Internet Access Q2 Not on file 12/03/2024 Sex and Gender Information Value Date Recorded Sex Assigned at Male 09/03/2022 10:33 AM EDT Legal Sex Male 10:33 AM EDT Gender Identity Male 09/03/2022 10:33 AM EDT Sexual Orientation Straight 09/03/2022 10 :33 AM EDT Last Filed Vital Signs Vital Sign Reading Time Taken Comments Blood Pressure 148/84 03/09/2025 1:43 PM EDT Pulse 63 03/09/2025 1:41 PM EDT Temperature 36.4 ??C (97.6 ??F) 03/09/2025 1:41 PM ED T Respiratory Rate 18 03/09/2025 1:41 PM EDT Oxygen Saturation 98% 03/09/2025 1:41 PM EDT Inhaled Oxygen Concentration - - Weight 90.4 kg (199 lb 4 oz) 03/09/2025 1:41 PM EDT Height 172.7 cm (5' 8 ) 03/09/2025 1:41 PM EDT Body Mass Index 30.3 03/09/2025 1:41 PM EDT Plan of Treatment Health Maintenance Due Date Last Done Comments CT Colonography 1969 FIT DNA/Cologuard 1969 FIT 1969 FOBT 1969 HIV Screening 1969 Sigmoidoscopy 1969 Hepatitis B Vaccines (1 of 3 - 19+ 3-dose series) 1988 Alcohol/Substance Use Screening 10/06/2025 10/06/2024 COVID-19 Vaccine ( season) 2025 10/05/2021, 03/27/2021, 02/27/2021, Additional history exists Postponed from 07/05/2024 (Patient Refused) Depression Screening 12/03/2025 12/03/2024, 12/03/19 SDOH Screening 12/03/2025 12/03/2024 Tobacco Screening 03/09/2026 03/09/2025 Colonoscopy 07/05/2026 07/05/2021 Colorectal Cancer Screening 07/05/2026 Lipid Panel 06/26/2029 06/26/2024 DTaP/Tdap/Td Vaccines (2 - Td or Tdap) 03/21/2031 03/21/2021 RSV Patients and Patients Aged 60 years or older (1 - 1-dose 75+ series) 2044 Zoster Vaccines Completed 03/20/2023, 03/21/2021 Pneumococcal Vaccine: 50+ Years Completed 06/24/2024 Hepatitis C Screening Completed 06/26/2024 Influenza Vaccine Completed 10/06/2024, , 12/12/2020, Additional history exists HIB Vaccines Aged Out No longer eligi [...] patient's age to complete this topic Meningococcal Vaccine Aged Out No eliseo ray eligible based on patient's age to complete this topic RSV under 20 months Aged Out No longe r eligible based on patient's age to complete this topic Rotavirus Vaccines Aged Out No longer eligible based on patient's age to complete this topic Procedures Procedure Name Priority Date/Time Associated Diagnosis Comments XR SHOULDER 2+ VIEWS LEFT Routine 03/09/2025 2:50 PM EDT Acute pain of left shoulder HEPATITIS C AB W/REFL TO HCV RNA, QN, PCR Routine 06/26/2024 10:19 AM EDT Primary hypertension LIPID PANEL, STANDARD Routine 06/26/2024 10:17 AM EDT Primary hypertension COLONOSCOPY Routine 07/05/2021 11:02 AM EDT from Last 3 Months or Most Recently Relevant to Health Maintenance Results * XR Shoulder 2+ Views Left (03/09/2025 2:50 PM EDT) Anatomical Region Laterality Modality Upper Extremities, Shoulder Left Radi ographic Imaging 03/09/2025 2:50 PM EDT Narrative 03/09/2025 3:14 PM EDT ? [facility] ?[address] ?[place] [address] ?XRay Report ? Signed ? Patient: Martínez Thibodeaux ?MR#: [id number] ?? [id number] ? : 1970 ?Acct:[id number] ? Age/Sex: 54 / M ?ADM Date: 03/09/25 ? Loc: HO.CHCLDS ? Attending Dr: Angel Campbell MD ? Ordering Physician: Angel Campbell MD ?? Date of Service: 03/09/25 ?? Procedure(s): XR shoulder LT min 2V ?? Accession Number(s): [id number] ? cc: Angel Campbell MD ? EXAMINATION: ?? XR SHOULDER, LEFT ? CLINICAL INFORMATION: ?? Left shoulder pain after a fall. ? COMPARISON: ?? None available. ? TECHNIQUE: ?? AP external rotation, Grashey, scapular Y, and axillary views of the ?? left shoulder. ? FINDINGS: ?? Normal bone mineralization. No fracture, dislocation, or suspicious ?? bone lesion. Normal alignment. ?? The glenohumeral joint demonstrates mild degenerative arthritis. ?? The AC joint demonstrates mild undersurface and superior surface ?? spurring. ?? There is a neutral lateral acromion. Small undersurface spurs. ?? The subacromial space is preserved. ? Remainder of the soft tissue and bony structures appear normal. ? XR/XR shoulder LT min 2V ?? IMPRESSION: ?? No acute bony abnormalities. Mild degenerative findings left shoulder. ? Electronically signed by: ??Zeeshan Segovia MD ??03/09/2025 03:11 PM EDT RP ? Dictated By: ?Zeeshan Segovia MD ? Signed By: ?<Electronically signed by Zeeshan Segovia MD in OV> ?03/09/25 1511 ? DD/ 1450 ? TD/TT: 03/09/25 1500 ? Pumping Plant Operator: ? Procedure Note Rahul Grande - 03/09/[address] [address] XRay Report Signed Patient: Martínez Thibodeaux AMR#: [id number] : 1970Acct:[id number] Age/Sex: 54 / MADM Date: 03/09/25 Loc: HO.CHCLDS Attending Dr: Angel Campbell MD Ordering Physician: Angel Campbell MD Date of Service: 03/09/25 Procedure(s): XR shoulder LT min 2V Accession Number(s): [id number] cc: Angel Campbell MD EXAMINATION: XR SHOULDER, LEFT CLINICAL INFORMATION: Left shoulder pain after a fall. COMPARISON: None available. TECHNIQUE: AP external rotation, Grashey, scapular Y, and axillary views of the left shoulder. FINDINGS: Normal bone mineralization. No fracture, dislocation, or suspicious bone lesion. Normal alignment. The glenohumeral joint demonstrates mild degenerative arthritis. The AC joint demonstrates mild undersurface and superior surface spurring. There is a neutral lateral acromion. Small undersurface spurs. The subacromial space is preserved. Remainder of the soft tissue and bony structures appear normal. XR/XR shoulder LT min 2V IMPRESSION: No acute bony abnormalities. Mild degenerative findings left shoulder. Electronically signed by: Zeeshan Segovia MD 03/09/2025 03:11 PM EDT RP Dictated By: Zeeshan Segovia MD Signed By: <Electronically signed by Zeeshan Segovia MD in OV> 03/09/25 1511 DD/ 1450 TD/TT: 03/09/25 1500 Pumping Plant Operator: us Angel Campbell MD IMG XR PROCEDURES Final Res ult * Hepatitis C Antibody with Reflex to HCV, RNA, Quantitative, Real-Time PCR (06/26/2024 10:19 AM EDT) Pathologist [facility] Hepatitis C Antibody Nonreactive Nonreactive [facility] Comment:Antibodies to HCV no t detected; does not exclude early acuteHCV infection. Blood Venous blood specimen / Unknown 06/26/2024 10:19 AM EDT 06/26/2024 2:28 PM EDT us Angel Campbell MD LAB BLOOD ORDERABLES Final Result [facility] [address] [place] [phone] * (ABNORMAL) Lipid Panel, Standard (06/26/2024 10:17 AM EDT) Triglycerides 162(H) <150 mg/dL [facility] Comment:Desirable Triglyceri de: less than 150 mg/dLBorderline High Triglyceride 150-199 mg/dLHigh Triglyceride: 200-499 mg/dLVery High Triglyceride: greater than or equal to 5OO mg/dL Cholesterol 285(H) <200 mg/dL [facility] Comment:Desirable Cholestero l: less than 200 mg/dLBorderline High Cholesterol: 200-239 mg/dLHigh Cholesterol: greater than 239 mg/dL LDL Cholesterol Calculated 206(H) <100 mg/dL [facility] Comment:Desirable LDL: less than 100 mg/dLNear Optimal/Above Optimal LDL: 110- 129 mg/dLBorderline High LDL: 130-159 mg/dLHigh LDL: 160-189 mg/dLVery High LDL: greater than or equal to 190 mg/dL HDL Cholesterol 47 >40 mg/dL [facility] Comment:Desirable HDL: great er than 40 mg/dL Note: This HDL assay may give artificially low results in patients with liver disease. Blood Venous blood specimen / Unknown 06/26/2024 10:17 AM EDT 06/26/2024 2:25 PM EDT us Angel Campbell MD LAB BLOOD ORDERABLES Final Result [facility] [address] [place] [phone] * Colonoscopy (07/05/2021 11:02 AM EDT) Anatomical Region Laterality Modality Endoscopy Historical Provider ENDOSCOPY PROCEDURE ORDER ARACELIS Final Result from Last 3 Months or Most Recently Relevant to Health Maintenance Insurance [facility] C[facility] Care Teams Pearl Peller Relationship Specialty Start Date End Date Angel Campbell MD [address] [place] [phone] PCP - General Internal Medicine 12/05/17
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
--- OUTSIDE RECORDS SUMMARY | 2025-03-09 15:28 | XMS_ITS | Encounter Summary ---
Author Organization [employer] Address [address] [place] [address] 7t [place] [address] Care Team Providers Care Director Of Psychology Name Role Phone Angel Campbell MD Primary Care Provider [phone] Reason for Visit * Reason Comments Med Refill Encounter Details Date Type Department Care Team ([facility] st Contact Info) Description 10/08/2023 Refill [facility] MED & PEDS [address] [place] [address] Angel Campbell MD [address] [place] [address] Chronic pain of both knees; Primary hypertension Social History Tobacco Use Types Packs/Day Years Used Date Smoking Tobacco: Never Assessed Sex and Gender Information Value Date Recorded Sex Assigned at Male 09/03/2022 10:33 AM EDT Legal Sex Male 10:33 AM EDT Gender Identity Male 09/03/2022 10:33 AM EDT Sexual Orientation Straight 09/03/2022 10 :33 AM EDT documented as of this encounter Plan of Treatment Not on file documented as of this encounter Visit Diagnoses Diagnosis Chronic pain of both knees Primary hypertension Unspecified essential hypertension documented in this encounter Care Teams Director Of Psychology Relationship Specialty Start Date End Date Angel Campbell MD [address] [place] [address] PCP - General Internal Medicine 12/05/17 documented as of this encounter
--- OUTSIDE RECORDS SUMMARY | 2025-03-09 15:28 | XMS_ITS | Encounter Summary ---
Author Organization [employer] Address [address] [place] [address] 7t [place] [address] Care Team Providers Care Nipple Threader Name Role Phone Angel Campbell MD Primary Care Provider [phone] Reason for Visit * Reason Comments Med Change Request Encounter Details Date Type Department Care Team ([facility] st Contact Info) Description 12/11/2022 Refill [facility] CH[facility] MED & PEDS [address] [place] [address] Angel Campbell MD [address] [place] [address] Chronic pain of both knees Social History Tobacco Use Types Packs/Day Years [...] Diagnoses Diagnosis Chronic pain of both knees documented in this encounter Care Teams Nipple Threader Relationship Specialty Start Date End Date Angel Campbell MD [address] [place] [address] PCP - General Internal Medicine 12/05/17 documented as of this encounter
--- OUTSIDE RECORDS SUMMARY | 2025-03-09 15:28 | XMS_ITS | Clinical Summary ---
Author Organization [address] Address [address] [place] [phone] Phone Care Team Providers Care Job Specification Writer Name Role Phone No, Pcp (Do Not Change Name) Primary Care Provid er Unavailable Allergies No known active allergies Social History Tobacco Use Types Packs/Day Years Used Date Smoking Tobacco: Never Alcohol Use Standard Drinks/Week Comments Yes 0 (1 standard drink = 0.6 oz pur e alcohol) Sex and Gender Information Value Date Recorded Sex Assigned at Not on file Legal Sex Male 8:05 PM EDT Gender Identity Not on file Sexual Orientation Not on file Last Filed Vital Signs Vital Sign Reading Time Taken Comments Blood Pressure 144/65 05/07/2017 10:27 PM EDT Pulse 84 05/07/2017 10:27 PM EDT Temperature 36.7 ??C (98 ??F) 05/07/2017 10:27 PM EDT Respiratory Rate 16 05/07/2017 10:27 PM EDT Oxygen Saturation 99% 05/07/2017 10:27 PM EDT Inhaled Oxygen Concentration - - Weight - - Height - - Body Mass Index - - Plan of Treatment Health Maintenance Due Date Last Done Comments HIV screening 1982 Hepatitis C screening 1987 Tetanus adult (Td q 10,TDAP once) 1989 Lipid disorder screening 2009 Colon cancer screening, Colonoscopy 2014 Diabetes screening 2014 Pneumococcal Vaccine (50+ ye ars) (1 of 1 - PCV) 2019 Shingles vaccine (Shingrix) (1 of 2 - Shingrix (RZV) 2 Dose Standard Series) 2019 Covid-19 vaccine series ( - 2024-25 season) 2024 Influenza vaccine 07/05/2025 RSV Immunization (1 - 1-dose 75+ series) 2044 Meningococcal Vaccine Aged Out No eliseo ray eligible based on patient's age to complete this topic Pneumococcal Vaccine (2 - 49 years) Aged Out No longer eligible based on patient's age to complete this topic Insurance [employer] Member Subscriber Plan / Payer (Ef fective 2017-Present) Name:Martínez Thibodeaux Relation to Subscriber:Self Name:Martínez Thibodeaux Payer ID:[id number] Group ID:Not on file Type:Not on file [phone] Address: [address] [facility] [place] [address] [employer] Member Subscriber Plan / Payer (Ef fective 2017-Present) Name:Martínez Thibodeaux Relation to Subscriber:Self Name:Martínez Thibodeaux Payer ID:[id number] Group ID:Not on file Type:Not on file [phone] Address: [address] [place] [address] [employer] Member Subscriber Plan / Payer (Ef fective 2017-Present) Name:Martínez Thibodeaux Relation to Subscriber:Self Name:Martínez Thibodeaux Payer ID:[id number] Group ID:Not on file Type:Not on file [phone] Address: [address] [place] [address] Care Teams Job Specification Writer Relationship Specialty Start Date End Date No, Pcp (Do Not Change Name) PCP - General 05/07/17
--- OUTSIDE RECORDS SUMMARY | 2025-03-09 15:28 | XMS_ITS | Encounter Summary ---
Author Organization [employer] Address [address] [place] [address] 7t [place] [address] Care Team Providers Care Residence Counselor Name Role Phone Angel Campbell MD Primary Care Provider [phone] Encounter Details Date Type Department Care Team ([facility] st Contact Info) Description 06/29/2024 Orders Only [facility] CHC MED & PEDS [address] [place], [place] [phone] Angel Campbell MD [address] [place] [address] Social History Tobacco Use Types Packs/Day Years Used Date Smoking Tobacco: Never Smokeless Tobacco: Never Depression Answer Date Recorded Patient Health Questionnaire-9 Score 1 06/24/2024 Patient Health Questionnaire-9 Score 1 06/24/2024 Last PHQ-9: Questionnaire Data Not on file 0 06/24/2024 Housing Stability Answer Date Recorded What is your housing situation today? I have lupillo anthony 06/16/[address] you li [...] Date Recorded Patient Health Questionnaire-2 Score 0 06/24/2024 Sex and Gender Information Value Date Recorded Sex Assigned at Male 09/03/2022 10:33 AM EDT Legal Sex Male 10:33 AM EDT Gender Identity Male 09/03/2022 10:33 AM EDT Sexual Orientation Straight 09/03/2022 10 :33 AM EDT documented as of this encounter Plan of Treatment Not on file documented as of this encounter Visit Diagnoses Not on filedocumented in this encounter Additional Health Concerns Assessment Noted Time PHQ-9 Depression Total Score: 1 06/24/20 24 11:57 AM EDT documented as of this encounter Care Teams Residence Counselor Relationship Specialty Start Date End Date Angel Campbell MD [address] [place] [address] PCP - General Internal Medicine 12/05/17 documented as of this encounter
--- OUTSIDE RECORDS SUMMARY | 2025-03-09 15:28 | XMS_ITS | Encounter Summary ---
Author Organization [employer] Address [address] [place] [address] 7t [place] [address] Care Team Providers Care Assurance Senior Name Role Phone Angel Campbell MD Primary Care Provider [phone] Encounter Details Date Type Department Care Team (Late st Contact Info) Description 06/29/2024 Orders Only [facility] CHC MED & PEDS [address] [place] [address] Provider, MD Cristian Social History Tobacco Use Types Packs/Day Years [...] Procedure Name Priority Date/Time Associated Diagnosis Comments COLONOSCOPY Routine 07/05/2021 11:02 AM EDT documented in this encounter Results * Colonoscopy (07/05/2021 11:02 AM EDT) Anatomical Region Laterality Modality Endoscopy us Historical Provider ENDOSCOPY PROCEDURE ORDER ARACELIS Final Result documented in this encounter Visit Diagnoses Not on filedocumented in this encounter Additional Health Concerns Assessment Noted Time PHQ-9 Depression Total Score: 1 06/24/20 24 11:57 AM EDT documented as of this encounter Care Teams Assurance Senior Relationship Specialty Start Date End Date Angel Campbell MD [address] [place] [address] PCP - General Internal Medicine 12/05/17 documented as of this encounter
--- OUTSIDE RECORDS SUMMARY | 2025-03-09 15:28 | XMS_ITS | Encounter Summary ---
Author Organization [employer] Address [address] [place] [address] 7t [place] [address] Care Team Providers Care Editorial Director Name Role Phone Angel Campbell MD Primary Care Provider [phone] Reason for Visit * Reason Comments Med Refill Encounter Details Date Type Department Care Team ([facility] st Contact Info) Description 10/10/2024 Refill [facility] CHC MED & PEDS [address] [place], [place] [phone] Angel Campbell MD [address] [place] [address] Chronic pain of both knees Social History [...] Recorded Patient Health Questionnaire-2 Score 0 06/24/2024 Internet Access Answer Date Recorded Internet Access Q1 Yes 07/06/2024 Internet Access Q2 Not on file 07/06/2024 Sex and Gender Information Value Date Recorded [...] of both knees documented in this encounter Additional Health Concerns Assessment Noted Time PHQ-9 Depression Total Score: 1 06/24/20 24 11:57 AM EDT documented as of this encounter Care Teams Editorial Director Relationship Specialty Start Date End Date Angel Campbell MD [address] [place] [address] PCP - General Internal Medicine 12/05/17 documented as of this encounter
--- OUTSIDE RECORDS SUMMARY | 2025-03-09 15:28 | XMS_ITS | Continuity of Care Document ---
Author Organization [facility] Address [address] [place] [address] Phone Care Team Providers Care Impregnator Name Role Phone Jose Merritt MD Unavailable Unavailable Allergies, Adverse Reactions, Alerts Substance Reaction Status Criticality No Known Allergies Active No Inform ation Medications Medication Instructions Dosage Effective Dates (start - stop) Status Comments prednisolone acetate 1 % eye drops,suspension Place 1 drop in affected eye(s) 4 times per day - Active Vigamox 0.5 % eye drops instill 1 drop by ophthalmic route 4 times every day into right eye 1 drop - Active Procedures Procedure Date Postop F/u Visit Incld Global 0 REMOVAL OF EYE LESION Pt doc no events on discharg Transportation costs to and Exc/transposition Pterygium; W 20 Offic/outpt E&m New Mod-hi 45 0 Advance Directives Directive Yes / No Effective Date File Name No Information Encounters Encounter Description Practice Location Reason(s) For Visit Diagnoses Date Provider Providers Copied on Encounter [facility], [address], [place], [id number], tel:[phone] FEINavjot Coleman [facility] No Information 1 René Garcia. [address], [place], [id number], [place]. tel:[phone] Referring Provider: Ha Jauregui, [address] [place] [address] [facility] [address]. tel:[phone] [facility], [address], [place], [id number], [place] tel:[phone] Sincere NAVARRETE post-op visit (chief complaint) Pterygium of right eye 0 René Rochail. [address], [place], [id number], [place]. tel:[phone] Referring Provider: Ha Jauregui, [address] [place] [address] [facility]re [facility] [address]. tel:[phone] [facility], [address] [place], [id number], [place] tel:[phone] [facility] Unspecified pterygium of right eye 0 [facility]. [address] [place], [id number], [place]. tel:[phone] Referring Provider: Jose Merritt, [address] [place] [address], [place], [address] . tel:[phone] [facility], [address] [place], [id number], [place] tel:[phone] [facility] No Information 0 [facility]. [address] [place], [id number], [place]. tel:[phone] Referring Provider: Jose Merritt, [address] [place] [address], [place], [address] . tel:[phone] [facility], [address], [place], [id number], [place] tel:[phone] [facility] No Information 0 René Garcia. [address] [place] [address], [place], [id number], . tel:[phone] Referring Provider: Ha Jauregui, [address] [facility] [place], [place], [address]. tel:[phone] [facility], [address], [place], [place], [id number], tel:[phone] [facility] No Information 0 Farbman Jose. [address], [place], [place], [id number], [place]. tel:[phone] Offic/outpt E&m New Mod-hi 45 [facility], [address], [place], [place], [id number], [place] tel:[phone] Sincere [facility]son [place] new corneal evaluation (chief complaint) Pterygium of right eye 0 Farbman Jose. [address], [place], [place], [id number], [place]. tel:[phone] Referring Provider: Ha Jauregui, [address] [facility] [place], [place], [address]. tel:[phone] Family History Family Member Type Diagnosis Age At Onset No Information Payers Payer name Insurance type Covered libertarian ID Authoriza tion(s) No Information Social History Type Description Quantity Date Captured Comments Sex Male Smoking Status No Information Chief Complaint And Reason For Visit No Information Reason For Referral Reason For Referral No Information Plan Of Treatment Date Type Action Status Goal Tobacco cessation counseling completed Goal Tobacco cessation counseling completed History Of Present Illness Encounter Date Complaint History Of Prese nt Illness post-op visit The 49 year old male presents for post-op visit in the right eye. Patient seen in consultation at the request of Dr. Ha Jauregui. The complaint is sp pterygium excision 04/20/20.still using pred and mox tid od post-op visit The 49 year old male presents for post-op visit in the right eye. Patient seen in consultation at the request of Dr. Ha Jauregui. The complaint is sp pterygium excision 04/20/20. new corneal evaluation The 49 ye ar old male presents for new corneal evaluation in the right eye. Patient seen in consultation at the request of Dr. Ha Jauregui. The complaint is pterygium. It started about 1 year(s) ago. The onset was gradual. The symptoms are moderate.pterygium removal os new corneal evaluation The 49 ye ar old male presents for new corneal evaluation in the right eye. Patient seen in consultation at the request of Dr. Ha Jauregui. The complaint is pterygium. It started about 1 year(s) ago. The onset was gradual. The symptoms are moderate.pterygium removal os given fml not using Functional Status Date Functional Assessmen t No Information Instructions Date Instruction Additional Infor ceci Impression/Plan Related to Ptery gium of right eye Impression/Plan Related to Ptery gium of right eye Assessments Type Assessment Date No Information Patient Care Teams Name Effective Dates (start - stop) Status Members No Information
--- OUTSIDE RECORDS SUMMARY | 2025-03-09 15:28 | XMS_ITS | Encounter Summary ---
Author Organization [employer] Address [address] [place] [address] 7t [place] [address] Care Team Providers Care [employer] Assistant Manager Name Role Phone Angel Campbell MD Primary Care Provider [phone] Reason for Visit * Reason Comments Med Refill Encounter Details Date Type Department Care Team ([facility] st Contact Info) Description 10/04/2023 Refill [facility] CHC MED & PEDS [address] [place] [address] Angel Campbell MD [address] [place] [address] Gastroesophageal reflux disease without esophagitis Social History Tobacco Use Types Packs/Day Years [...] as of this encounter Visit Diagnoses Diagnosis Gastroesophageal reflux disease without esophagitis Esophageal reflux documented in this encounter Care Teams [employer] Assistant Manager Relationship Specialty Start Date End Date Angel Campbell MD [address] [place] [address] PCP - General Internal Medicine 12/05/17 documented as of this encounter
--- OUTSIDE RECORDS SUMMARY | 2025-03-09 15:28 | XMS_ITS | Encounter Summary ---
Author Organization [employer] Address [address] [place] [address] 7t [place] [address] Care Team Providers Care It Security Project Manager Name Role Phone Angel Campbell MD Primary Care Provider [phone] Encounter Details Date Type Department Care Team (Latest Contact Info) Description 03/09/2025 Travel Social History Tobacco Use Types Packs/Day Years Used Date Smoking Tobacco: Never Smokeless Tobacco: Never Depression Answer Date Recorded Patient Health Questionnaire-9 Score 0 12/03/2024 Patient Health Questionnaire-9 Score 0 12/03/2024 Last PHQ-9: Questionnaire Data Not on file 0 12/03/2024 Housing Stability Answer Date Recorded What is your housing situation today? I have lupillomike cruz 06/16/[address] you [...] documented as of this encounter Care Teams It Security Project Manager Relationship Specialty Start Date End Date Angel Campbell MD [address] [place] [address] PCP - General Internal Medicine 12/05/17 documented as of this encounter
--- OUTSIDE RECORDS SUMMARY | 2025-03-09 15:29 | XMS_ITS | Continuity of Care Document ---
Author Organization [facility] Address [address] [place] [address] Care Team Providers Care Recycle Worker Name Role Phone Ring Willie BROTHERS Unavailable Unavailable Allergies, Adverse Reactions, Alerts Substance Reaction Status Criticality No Known Allergies Active No Inform ation Medications Medication Instructions Dosage Effective Dates (start - stop) Status Comments ammonium lactate 12 % topical cream apply 1 by Topical route 3 times every day 1 - Active lidocaine 5 % topical patch apply 1 patch by topical route every day (May wear up to 12hours.) 1.00 patch - Active multivitamin tablet take 1 tablet by oral route every day with food - Active triamcinolone acetonide 0.025 % topical cream apply by topical route 2 times every day a thin layer to the affected area(s) 0.00 - Active mupirocin 2 % topical ointment apply by topical route 2 times every day a small amount to the affected area Not Available - Active clotrimazole 1 % topical cream apply by topical route 2 times every day to the affected and surrounding areas of skin in the morning and evening 0.00 - Active acetaminophen 500 mg tablet take 2 tablet by oral route every 6 hours as needed 1000 MG - Active Procedures Procedure Date VITAMIN B-12 ROUTINE VENIPUNCTURE LIPID PANEL COMPREHEN METABOLIC PANEL OFFICE/OUTPATIENT VISIT, EST ADULT IMMUNIZATION ADMIN, 1ST Apr-22-202 5 FLU VACCINE NO PRESERV ADULT IMMUNIZATION ADMIN, 1ST 3 HZV VACC RECOMBINANT IM NJX ADULT IMMUNIZATION ADMIN, 1ST 3 FLU VAC NO PRSV 4 VAL6 Mo And Older ADULT IMMUNIZATION ADMIN, 1ST 3 HZV VACC RECOMBINANT IM NJX OFFICE/OUTPATIENT VISIT, EST IRON BINDING TEST ROUTINE VENIPUNCTURE LIPID PANEL BLOOD SEROLOGY, QUALITATIVE HIV-1 COMPLETE CBC, AUTOMATED HEPATITIS C AB TEST COMPREHEN METABOLIC PANEL BLOOD FOLIC ACID SERUM GLYCATED HEMOGLOBIN TEST ASSAY OF FERRITIN ASSAY THYROID STIM HORMONE DRUG TEST PRSMV CHEM ANLYZR ASSAY, BLD/SERUM CHOLESTEROL URINE CULTURE/COLONY COUNT OFFICE/OUTPATIENT VISIT, EST ADULT IMMUNIZATION ADMIN, 1ST 2 FLU VAC NO PRSV 4 VAL6 Mo And Older Moderna 18+ Bivalent 50 MCG/0.5mL Moderna OFFICE/OUTPATIENT VISIT, EST OFFICE/OUTPATIENT VISIT, EST OFFICE/OUTPATIENT VISIT, EST ASSAY OF PSA, TOTAL ROUTINE VENIPUNCTURE ALPHA-FETOPROTEIN, SERUM OFFICE/OUTPATIENT VISIT, EST Screening For Depresion ADULT IMMUNIZATION ADMIN, 1ST 1 FLU VAC NO PRSV 4 VAL6 Mo And Older OFFICE/OUTPATIENT VISIT, EST OFFICE/OUTPATIENT VISIT, EST Unused Encounter OFFICE/OUTPATIENT VISIT, EST OFFICE/OUTPATIENT VISIT, EST OFFICE/OUTPATIENT VISIT, EST PSYTX PT&/FAMILY 30 MINUTES OFFICE/OUTPATIENT VISIT, EST OFFICE/OUTPATIENT VISIT, EST OFFICE/OUTPATIENT VISIT, EST ADULT IMMUNIZATION ADMIN, 9 FLU VACC 4 ABIMAEL 36 Mo PLUS IM OFFICE/OUTPATIENT VISIT, EST Screening For Depresion OFFICE/OUTPATIENT VISIT, EST URINALYSIS NONAUTO W/O SCOPE BLOOD FOLIC ACID SERUM VITAMIN B-12 URINE CULTURE/COLONY COUNT COMPREHEN METABOLIC PANEL OFFICE/OUTPATIENT VISIT, EST Intraoral Complete Series (Including Bit ewings) Comprehensive Oral Evaluation New Or Est ablished Patient COMPREHEN METABOLIC PANEL ROUTINE VENIPUNCTURE OFFICE/OUTPATIENT VISIT, EST URINALYSIS NONAUTO W/O SCOPE URINALYSIS, AUTO W/SCOPE URINE CULTURE/COLONY COUNT ROUTINE VENIPUNCTURE ALPHA-FETOPROTEIN, SERUM COMPREHEN METABOLIC PANEL OFFICE/OUTPATIENT VISIT, EST ADULT IMMUNIZATION ADMIN, EACH ADD Sep- FLU VACC 4 ABIMAEL 36 Mo PLUS IM ADULT IMMUNIZATION ADMIN, 8 TDAP VACCINE >7 IM OFFICE/OUTPATIENT VISIT, EST ALPHA-FETOPROTEIN, SERUM Screening For Depresion HEPATITIS C AB TEST ROUTINE VENIPUNCTURE COMPREHEN METABOLIC PANEL HIV-1 LIPID PANEL GLYCATED HEMOGLOBIN TEST ASSAY THYROID STIM HORMONE HEP B SURFACE ANTIBODY BLOOD SEROLOGY, QUALITATIVE OFFICE/OUTPATIENT VISIT, NEW Advance Directives Directive Yes / No Effective Date File Name No Information Encounters Encounter Description Practice Location Reason(s) For Visit Diagnoses Date Provider Providers Copied on Encounter [facility], [address], [place]os [place], [id number], [place] [facility] No Information 5 Srinivasan Tapia. [address] [place] [address], Agustin howell [place], [id number], . tel:[phone] OFFICE/OUTPA TIENT VISIT, EST [facility], [address], [place], [id number], [place] [facility] [place] Notes (chief complaint)O V (chief complaint) Chronic left-sided low back pain without sciaticaOther chronic painAlcoholism in remissionLeft spastic hemiparesis 5 Srinivasan Tapia. [address] [place] [address], [facility] [place], [id number], [place]. tel:[phone] [facility], [address], [place], [id number], [place] [facility] No Information 5 Taamanda Gomes. [address] [place] [address], [facility] [place], [id number], [place]. tel:2500 [facility], [address], [place], [id number], [place] [facility] No Information 3 Manuel Hurtado. [address] [place] [address], [place], [id number], [place]. tel:[phone] [facility], [address], Adele rios [place], [id number], [place] [facility] No Information 3 Manuel Hurtado. [address] [place] [address], [place], [id number], [place]. tel:2500 OFFICE/OUTPA TIENT VISIT, EST [facility], [address], [place], [id number], [place] [facility] Follow up (chief complaint) DysuriaPruritic rashScreening for colon cancerAlcoholism in remissionOpioid dependence in remissionMarijuan a useLeft hemiplegiaLeft spastic hemiparesisRight- sided nontraumatic intracerebral hemorrhage, unspecified cerebral locationChronic left-sided low back pain without sciaticaOther chronic pain 3 Ondina Hall. [address] [place] [address], [place], [id number], . tel: [phone] OFFICE/OUTPA TIENT VISIT, [facility], [address] [place], [id number], [place] [facility] TM (chief complaint) Chronic left-sided low back pain without sciaticaOther chronic painNeurologic gait dysfunctionVaccin e counselingAbnorma l finding of blood chemistry, unspecified 3 Srinivasan Tapia. [address] [place] [address], [place], [id number], . tel: [phone] [facility], [address] [place] [place], [id number], [place] [facility] No Information 3 Ondina Hall. [address] [place] [address], [place], [id number], [place]. tel: [phone] [facility], [address] [place], [id number], [place] [facility] Encounter for immunization 2 Manuel Hurtado. [address] [facility], [place], [id number], [place]. tel: [phone] OFFICE/OUTPA TIENT VISIT, [facility], [address] [place], [id number], [place] [facility] (chief complaint) Dry skin dermatitisChronic left-sided low back pain without sciaticaVaccine counseling 2 Emmanuelle Cabrera. [address] [place] [address], [place], [id number], . tel: [phone] OFFICE/OUTPA TIENT VISIT, [facility], [address], [place], [id number], [place] [facility] back pain (chief complaint)r eferral request (chief complaint)r julianne (chief complaint) DysuriaLeft spastic hemiparesisChroni c left-sided low back pain without sciaticaOther chronic painDry skin dermatitis 2 Ondina Hall. [address] [facility], [facility] [place], [id number], [place]. tel: [phone] [facility], [address], [place], [place], [id number], [place] [facility] Neurologic gait dysfunctionLeft hemiplegia 2 Ondian Hall. [address] [facility], [facility] [place], [id number], [place]. tel: [phone] OFFICE/OUTPA TIENT VISIT, [facility], [address], Adele rios [place], [id number], [place] [facility] Home care request (chief complaint) Neurologic gait dysfunctionLeft spastic hemiparesis 2 Held Nyla. [address] [facility], [facility] [place], [id number], [place]. tel: [phone] [facility], [address], Adele rios [place], [id number], [place] [facility] Encounter for screening for malignant neoplasm of prostateDysuria 2 Manuel Hurtado. [address] [place] [address], [facility] [place], [id number], [place]. tel: [phone] OFFICE/OUTPA TIENT VISIT, [facility], [address], Adele rios [place], [id number], [place] [facility] telehealth (chief complaint)P SA screening (chief complaint)d ysuria (chief complaint) Screening PSA (prostate specific antigen)Dysuria 2 Manuel Hurtado. [address] [place] [address], [facility] [place], [id number], [place]. tel:2500 OFFICE/OUTPA TIENT VISIT, [facility], [address], [place], [id number], [place] [facility] Back pain f/u (chief complaint)r julianne f/u (chief complaint) Encounter for screening for other disorderNeurologi c gait dysfunctionOpioid dependence in remissionChronic bilateral low back pain without sciaticaOther chronic painDry skin dermatitisColon cancer screening 1 Held Nyla. [address] [place] [address], [place], [id number], [place]. tel:2500 [facility], [address], [place], [id number], [place] [facility] No Information 1 Held Nyla. [address] [place] [address], [place], [id number], [place]. tel:2500 OFFICE/OUTPA TIENT VISIT, [facility], [address], [place], [id number], [place] [facility] Chronic pain (chief complaint)r outine f/u (chief complaint) Left hemiplegiaChronic right-sided low back pain, unspecified whether sciatica presentOther chronic painSpasticityCol on cancer screening 1 Held Nyla. [address] [place] [address], [place], [id number], [place]. tel:2500 [facility], [address] [place], [id number], [place] [facility] No Information 1 Held Nyla. [address] [place] [address], [place], [id number], [place]. tel:2500 OFFICE/OUTPA TIENT VISIT, [facility], [address], [place], [id number], [place] [facility] Telephone Visit (chief complaint) Rash and nonspecific skin eruptionEducated about COVID-19 virus infection 1 Held Nyla. [address] [facility] [place], [id number], . tel:2500 OFFICE/OUTPA TIENT VISIT, [facility], [facility] [place], [id number], [place] [facility] Adult follow up (chief complaint) Screening for colon cancerChronic alcoholismVitamin D deficiencyOpioid dependence in remissionPterygiu m of right eyeLeft hemiplegiaRight-s ided nontraumatic intracerebral hemorrhage, unspecified cerebral locationNeurologi c gait dysfunction 0 Ondina Hall. [address] [place] [address] [place], [id number], . tel:2500 OFFICE/OUTPA TIENT VISIT, [facility], [facility] [place], [id number], [place] [facility] Adult pterygium (chief complaint) Pterygium of right eye 0 Ondina Hall. [facility]-[address] [place] [address] [place], [id number], [place]. tel:2500 PSYTX PT&/FAMILY 30 MINUTES [facility], [facility] [place], [id number], [place] [facility] ETOH abuse w/ intoxicationInsom niaDepressionAnxi ety 0 Jerry Vitale. [address] [place] [address] [place], [id number], [place]. tel: [phone] Referring Provider: Isabel Watters, [address] [place], [place] [address], [address] . tel:[phone] OFFICE/OUTPA TIENT VISIT, [facility], [facility] [place], [id number], [place] [facility] Adult form (chief complaint) Left hemiplegiaOpioid dependence in remissionChronic alcoholismPterygi um of right eye 0 Ondina Hall. [address] [place] [address] [place], [id number], . tel: [phone] OFFICE/OUTPA TIENT VISIT, [facility], [address] [place], [id number], [place] [facility] Adult Follow Up of Rash (chief complaint)m culoskalla wesley pain (chief complaint) Right-sided nontraumatic intracerebral hemorrhage, unspecified cerebral locationLeft hemiplegiaNeurolo gic gait dysfunctionRashRe quires assistance with activities of daily living (ADL)Decreased appetiteScreening for colon cancer 0 DeJoseph Isabel. [address] [place] [address], [place], [id number], . tel: [phone] OFFICE/OUTPA TIENT VISIT, [facility], [address] [place], [id number], [place] [facility] Adult Rash (chief complaint) Rash 0 Paola Stratton. [address] [place] [address], [place], [id number], [place]. tel: [phone] [facility], [address] [place], [id number], [place] [facility] Chronic pain syndromeFlaccid hemiplegia affecting left nondominant side, unspecified etiologyHemiplegi a, unspecified affecting left nondominant side 9 DeMarco Aph Isabel. [address] [place] [address], [place], [id number], [place]. tel: [phone] OFFICE/OUTPA TIENT VISIT, [facility], [address] [place], [id number], [place] [facility] Adult form completion (chief complaint) Pterygium of right eyeFlaccid hemiplegia affecting left nondominant side, unspecified etiology 0-201 9 DeJoseph Isabel. [address] [place] [address], [place], [id number], . tel: [phone] [facility], [address] [place], [id number], [place] [facility] Adult Pterygium of right eye Oct-0 7201 9 DeJoseph Isabel. [address] [place] [address], [place], [id number], . tel: [phone] [facility], [address], [place], [id number], [place] [facility] Adult Left hemiplegiaIntracr anial hemorrhage Sep-3 0-201 9 DeJoseph Isabel. [address] [place] [address], [place], [id number], [place]. tel: [phone] OFFICE/OUTPA TIENT VISIT, [facility], [facility] [place], [id number], [facility] Adult Medical clearance (chief complaint) Encounter for screening for other disorderPterygium of right eyeH/O subarachnoid hemorrhageLeft hemiplegiaChronic pain syndromeChronic alcoholismOpioid dependence in remissionEpigastr ic pain Sep-1 3-201 9 DeJoseph Isabel. [address] [place] [address], [place], [id number], . tel: [phone] OFFICE/OUTPA TIENT VISIT, [facility], [address] [place], [id number], [place] [facility] Adult abdominal pain (chief complaint) DysuriaLower abdominal pain May-0 9201 9 Hal Verduzco. [address] [place] [address], [place], [id number], [place]. tel: [phone] [facility], [address] [place], [id number], [place] [facility] Dental Dental caries, unspecifiedEncoun ter for screening for dental disorders Kenny-2 0-201 9 Accay Shyla. [address] [place] [address], [place], [id number], [place]. tel: [phone] OFFICE/OUTPA TIENT VISIT, [facility], [address] [place], [id number], [place] [facility] Adult Labs results (chief complaint)O ther (chief complaint) Elevated LFTsPterygium of both eyesAlcoholism in remissionOpioid dependence in remissionHistory of rhabdomyolysisH/O subarachnoid hemorrhageChronic pain syndromeLeft hemiplegiaInsomni a, unspecified typePreoperative clearance Chris Wood. [address] [place], [place] [address], [address], . tel:2500 OFFICE/OUTPA TIENT VISIT, [facility], [address], [place], [id number], Md Adult Medical clearance (chief complaint) Left hemiplegiaAlcohol ism in remissionChronic alcoholismMethado ne dependenceOpioid dependence in remissionH/O subarachnoid hemorrhagePterygi um of both eyesDysuriaHistor y of anemia Chris Wood. [address] [place], [place] [address], [address], . tel:2500 OFFICE/OUTPA TIENT VISIT, [facility], [address] [place], [id number], Md Adult pain. (chief complaint) Chronic pain syndromeLeft hemiplegiaInsomni a, unspecified type 8 Margret Will. [address] [place] [address], [place], [address], [place]. tel:2500 [facility], [address] [place], [id number], Md Adult Left hemiplegia 8 DeJoseph Isabel. [address] [place] [address] [place], [id number], [place]. tel:2500 [facility], [address] [place], [id number], Md Adult Hemiplegia, unspecified affecting left nondominant side 8 DeJoseph Isabel. [address] [facility] [place], [id number], [place]. tel:2500 OFFICE/OUTPA TIENT VISIT, [facility], [address] [place], [id number], [place] [facility] Adult stroke (chief complaint) Encounter for screening for other disorderChronic pain syndromeH/O subarachnoid hemorrhageAlcohol ism in remissionLeft hemiplegiaHistory of rhabdomyolysisInt racranial hemorrhageOpioid dependence in remissionMethadon e dependenceInsomni a, unspecified type 8 Ondina Hall. [address] [facility], [place], [id number], [place]. tel: [phone] Family History Family Member Type Diagnosis Age At Onset Father Problem (finding) Mother Problem (finding) hypertension Immunizations Vaccine Date Status Comments Flulaval - Pre filled administered Source : New Immunization Record SHINGRIX administered Source: New Imm unization Record Flulaval - Pre-filled administered Source : New Immunization Record SHINGRIX administered Source: New Imm unization Record Flulaval - Pre-filled administered Source : New Immunization Record Moderna Bivalent Booster 18yr+ administered Source: New Immuniza tion Record Flulaval - Pre-filled administered Source : New Immunization Record [id number] administered Note: Phi lavax ; Source: Other Provider [id number] administered Note: Phi lavax ; Source: Other Provider Flulaval - Multi-dose administered Source : New Immunization Record Flulaval - Multi-dose (6 m/o - 64 y/o) administered Source: New Immuniza tion Record Tdap administered Source: New Imm unization Record Payers Payer name Insurance type Covered democrat ID Authoriza tion(s) [facility] [id number] [facility] [id number] [facility] [id number] [facility] [id number] [facility] CI [id number] Replaced by [facility] CI [id number] Replaced by [facility] [id number] [id number] Social History Type Description Quantity Date Captured Comments Alcohol Use Details Unknown Caffeine Use Details Unknown Tobacco Use Status No Information Smoking Status No Information Sex Male Sexual Orientation Straight or heterosexual Apr Gender Identity Male Chief Complaint And Reason For Visit No Information Reason For Referral Reason For Referral No Information Plan Of Treatment Date Type Action Status Goal HIV Consented. Due on due Goal Sigmoidoscopy. Due on due Goal FIT-DNA. Due on due Goal CT-Colonography. Due on due Goal Depression scree isaura. Due on due Goal FOBT. Due on due Goal Tobacco screenin g. Due on due Goal Tobacco screenin g. Due on due Goal FOBT. Due on due Goal CT-Colonography. Due on due Goal Depression scree isaura. Due on due Goal FIT-DNA. Due on due Goal HIV Consented. Due on due Goal Sigmoidoscopy. Due on due Goal Creatinine. Due on due Goal Tdap due Goal CT-Colonography. Due on due Goal Zoster vaccine ( 2nd). Due on due Goal Hepatitis C scre ening. Due on due Goal FIT-DNA. Due on due Goal Influenza Vaccin e. Due on due Goal Zoster vaccine (1st) due Goal Unhealthy drug u se screening. Due on due Goal Depression scree isaura. Due on due Goal Potassium. Due on due Goal Lipid Panel. Due on due Goal HIV Consented. Due on due Goal Hepatitis C scre ening. Due on due Goal Zoster vaccine () due Goal Unhealthy drug u se screening. Due on due Goal Depression scree isaura. Due on due Goal FIT-DNA. Due on due Goal Tdap due Goal Influenza Vaccin e. Due on due Goal Creatinine. Due on due Goal Potassium. Due on due Goal CT-Colonography. Due on due Goal Hepatitis C anti body. Due on due Goal Influenza Vaccin e. Due on due Goal HIV Screen. Due on due Goal Lipid Panel. Due on due Goal Depression scree isaura. Due on due Goal Unhealthy drug u se screening. Due on due Goal Potassium. Due on due Goal Creatinine. Due on due Goal FIT-DNA. Due on due Goal Tdap due Goal HIV Consented. Due on due Goal CT-Colonography. Due on due Goal Hepatitis C scre ening. Due on due Goal Tdap. Due on due Goal HIV Consented. Due on due Goal CT-Colonography. Due on due Goal FIT-DNA. Due on due Goal Hepatitis C scre ening. Due on due Goal Unhealthy drug u se screening. Due on due Goal Creatinine. Due on due Goal Potassium. Due on due Goal Lipid Panel. Due on 023 due Goal Influenza Vaccin e. Due on due Goal Depression scree isaura. Due on due Goal Zoster vaccine ( ). Due on due Goal HIV Screen. Due on 19 due Goal Depression scree isaura. Due on due Goal Lipid Panel. Due on 023 due Goal HIV Consented. Due on due Goal Hepatitis C antibody due Goal Influenza Vaccin e. Due on due Goal Tdap due Goal Zoster vaccine ( ). Due on due Goal Hepatitis C antibody due Goal Zoster vaccine ( 1st). Due on due Goal HIV Consented. Due on due Goal Lipid Panel. Due on due Goal Influenza Vaccin e. Due on due Goal HIV Screen. Due on due Goal Depression scree isaura. Due on due Goal Tdap due Goal HIV Screen. Due on due Goal Depression scree isaura. Due on due Goal HIV Consented. Due on due Goal Influenza Vaccin e. Due on due Goal Hepatitis C antibody due Goal Tdap due Goal Lipid Panel. Due on due Goal Zoster vaccine ( ). Due on due Goal Hepatitis C antibody due Goal Tdap due Goal HIV Screen. Due on due Goal Depression scree isaura. Due on due Goal HIV Consented. Due on due Goal Zoster vaccine ( ). Due on due Goal Lipid Panel. Due on due Goal Influenza Vaccin e. Due on due Goal HIV Consented. Due on due Goal Tdap due Goal Lipid Panel. Due on due Goal Hepatitis C antibody due Goal Depression scree isaura. Due on due Goal Influenza Vaccin e. Due on due Goal HIV Screen. Due on due Goal Zoster vaccine ( 1st). Due on due Goal Tdap due Goal Influenza Vaccin e. Due on due Goal Zoster vaccine ( 1st). Due on due Goal HIV Screen. Due on due Goal Lipid Panel. Due on due Goal HIV Consented. Due on due Goal Depression scree isaura. Due on due Goal Hepatitis C antibody due Goal Influenza Vaccin e. Due on due Goal FOBT. Due on due Goal Depression scree isaura. Due on due Goal Tdap due Goal Lipid Panel. Due on due Goal HIV Consented. Due on due Goal HIV Screen. Due on due Goal Zoster vaccine ( ). Due on due Goal Hepatitis C antibody due Goal Hepatitis C antibody due Goal Lipid Panel. Due on due Goal Tdap due Goal HIV Consented. Due on due Goal Zoster vaccine ( 1st). Due on due Goal Depression scree isaura. Due on due Goal HIV Screen. Due on due Goal FOBT. Due on due Goal Influenza Vaccin e. Due on due Goal Zoster vaccine ( 1st). Due on due Goal HIV Screen. Due on due Goal Depression scree isaura. Due on due Goal Tdap due Goal Hepatitis C antibody due Goal FOBT. Due on due Goal HIV Consented. Due on due Goal Influenza Vaccin e. Due on due Goal Lipid Panel. Due on due Goal Lipid Panel. Due on due Goal FOBT. Due on due Goal Tdap due Goal HIV Screen. Due on due Goal Depression scree isaura. Due on due Goal HIV Consented. Due on due Goal Zoster vaccine ( 1st). Due on due Goal Influenza Vaccin e. Due on due Goal Hepatitis C antibody due Goal Tdap due Goal FOBT. Due on due Goal HIV Screen. Due on due Goal Influenza Vaccin e. Due on due Goal Zoster vaccine ( 1st). Due on due Goal Depression scree isaura. Due on due Goal Hepatitis C antibody due Goal HIV Consented. Due on due Goal Lipid Panel. Due on due Goal Zoster vaccine ( 1st). Due on due Goal Depression scree isaura. Due on due Goal Influenza Vaccin e. Due on due Goal Hepatitis C antibody due Goal FOBT. Due on due Goal HIV Consented. Due on due Goal Tdap due Goal HIV Screen. Due on due Goal Lipid Panel. Due on due Goal HIV Consented. Due on due Goal Zoster vaccine ( ). Due on due Goal Lipid Panel. Due on due Goal FOBT. Due on due Goal HIV Screen. Due on due Goal Tdap due Goal Hepatitis C antibody due Goal Influenza Vaccin e. Due on due Goal Depression scree isaura. Due on due Goal Tobacco cessation counseling completed Goal Zoster vaccine ( ). Due on due Goal Tdap due Goal HIV Screen. Due on due Goal Hepatitis C antibody due Goal Influenza Vaccin e. Due on due Goal Depression scree isaura. Due on due Goal FOBT. Due on due Goal HIV Consented. Due on due Goal Lipid Panel. Due on due Goal Influenza Vaccin e. Due on due Goal Depression scree isaura. Due on due Goal HIV Screen. Due on due Goal Colonoscopy. Due on due Goal Lipid Panel. Due on due Goal HIV Consented. Due on due Goal Hepatitis C antibody due Goal FOBT. Due on due Goal Tdap due Goal Zoster vaccine ( ). Due on due Goal Lipid Panel. Due on due Goal HIV Screen. Due on due Goal Zoster vaccine ( ). Due on due Goal Depression scree isaura. Due on due Goal HIV Consented. Due on due Goal Influenza Vaccin e. Due on due Goal Colonoscopy. Due on due Goal Tdap due Goal Hepatitis C antibody due Goal FOBT. Due on due Goal HIV Consented. Due on due Goal Influenza Vaccin e. Due on due Goal Lipid Panel. Due on 023 due Goal Colonoscopy. Due on due Goal Tdap due Goal Depression scree isaura. Due on due Goal FOBT. Due on due Goal HIV Screen. Due on 19 due Goal Zoster vaccine ( ). Due on due Goal Hepatitis C antibody due Goal Zoster vaccine ( ). Due on due Goal Colonoscopy. Due on due Goal FOBT. Due on due Goal Influenza Vaccin e. Due on due Goal Hepatitis C antibody due Goal HIV Consented. Due on due Goal Tdap due Goal HIV Screen. Due on due Goal Depression scree isaura. Due on due Goal Lipid Panel. Due on due Goal HIV Screen. Due on due Goal Tdap due Goal FOBT. Due on due Goal Influenza Vaccin e. Due on due Goal Hepatitis C antibody due Goal HIV Consented. Due on due Goal Zoster vaccine ( ). Due on due Goal Lipid Panel. Due on due Goal Depression scree isaura. Due on due Goal Colonoscopy. Due on 019 due Goal Hepatitis C antibody due Goal HIV Screen. Due on due Goal Depression scree isaura. Due on due Goal Tdap due Goal Lipid Panel. Due on due Goal HIV Consented. Due on due Goal Influenza Vaccin e. Due on due Goal Lipid Panel. Due on due Goal Influenza Vaccin e. Due on due Goal HIV Consented. Due on due Goal Depression scree isaura. Due on due Goal Tdap due Goal Hepatitis C antibody due Goal HIV Screen. Due on due Goal Lipid Panel. Due on due Goal Tdap due Goal HIV Screen. Due on due Goal HIV Consented. Due on due Goal Hepatitis C antibody due Goal Depression scree isaura. Due on due Goal Influenza Vaccin e. Due on due Goal Depression scree isaura. Due on due Goal Influenza Vaccin e. Due on due Goal Lipid Panel. Due on due Goal HIV Screen. Due on due Goal Tdap due Goal HIV Consented. Due on due Goal Hepatitis C antibody due Goal HIV Consented. Due on due Goal Depression scree isaura. Due on due Goal Hepatitis C antibody due Goal Tdap due Goal HIV Screen. Due on due Goal Influenza Vaccin e. Due on due Goal Lipid Panel. Due on due Goal HIV Screen. Due on due Goal Tdap. Due on due Goal Lipid Panel. Due on due Goal Hepatitis C antibody due Goal Depression scree isaura. Due on due Goal HIV Consented. Due on due Goal Influenza Vaccin e. Due on due Goal HIV Screen. Due on due Goal Tdap. Due on due Goal Depression scree isaura. Due on due Goal Lipid Panel. Due on due Goal HIV Consented. Due on due Goal Hepatitis C antibody due Goal Influenza Vaccin e. Due on due Goal Influenza Vaccin e. Due on due Goal Depression scree isaura. Due on due Goal HIV Consented. Due on due Goal Tdap. Due on due Referral Ordered: Referrals: Physical Medicine and Rehabilitation ordered Referral Ordered: Referrals: Physical Medicine and Rehabilitation. Evaluate and treat ordered Referral Referred To: [facility] ([facility]) Ordered: Referrals: [facility] ([facility]) ordered Referral Referred To: [facility] Ordered: Referrals: Physical Medicine and Rehabilitation. [facility]. Evaluate and treat ordered Referral Referred To: Gastroenterology Ordered: Referrals: Gastroenterology. Gastroenterology. Evaluate and treat ordered Referral Referred To: [facility] [phone] Ordered: Referrals: Gastroenterology. [facility]. Consult ordered Referral Referred To: [facility] Ordered: Referrals: Ophthalmology. [facility]. Evaluate and treat ordered Referral Ordered: Referrals: Gastroenterology ordered Referral Ordered: Referrals: Ophthalmology ordered Referral Referred To: Physical Therapy Ordered: Referrals: Physical Therapy. Evaluate and treat ordered Referral Ordered: Home nursing eval (related to Left hemiplegia) ordered Referral Referred To: Home nursing eval Ordered: Referrals: Home nursing eval ordered Referral Ordered: [facility] : Physical Medicine & Rehabilitation (related to Left hemiplegia) ordered Referral Referred To: Armando Car [address] [place], [address] [phone] Ordered: Referrals: [facility] : Physical Medicine & Rehabilitation. [facility]. Consult ordered Referral Ordered: Referrals: Physical Medicine and Rehabilitation. Consult ordered Future Order: Lab Order InSure F IT ([id number]), Ordered on: Ordered Future Order: Lab Order HEMOGLOB IN A1C ([id number]), Ordered on: Ordered Future Order: Lab Order LIPID PA AMERICA ([id number]), Ordered on: Ordered Future Order: Lab Order BMP ([id number]), Ordered on: Ordered Future Order: Lab Order GC/CT - Urine ([id number]), Ordered on: Ordered Future Order: Lab Order InSure F IT ([id number]), Ordered on: Ordered Future Order: Radiol ogy Order COLONOSCOPY AND BIOPSY ([id number]), Added on: New Future Order: Radiol ogy Order COLONOSCOPY AND BIOPSY ([id number]), Added on: New History Of Present Illness Encounter Date Complaint History Of Prese nt Illness [facility]Lost to follow up x1.5 yrsRequesting med refills only todayDenies changes to med history, denies any major health changesLiving with mother and brother, feels supported at homeDenies active substance abuse, says maybe 1-2 beers every few daysStill struggles with LUE/LLE weakness, does not have cane today but says uses dailyNo other concerns todayDoesn't want to return to PT, says he never connected with PM+RNot interested in [facility] support PRAVEEN Notes Med refill Follow up Presents [facility].Reports itchy rash on b/l arms and R ankle - dry skin.Desires Shingrix vaccine.Endorses MJ & EtOH use daily - interested in cutting back. Notes it relaxes him.Has never had CRC screen - occas bleeding w/BM.Reports occas dysuria. Reprots occas CP when lying in bed but self resolves & no associated sxs.Hasn't made appt w/PM&R. TM Med refillsToday reports only concern is med refillsAppears to have all refills available at pharmacyRequests refills for lidocaine patches, multivitaminPt has no other concernsOn chart review, pt had PCP appt last year for LBP and was referred to PM+RPt states he never went, is not currently in PT, and has stable chronic back painWould like to be back with that team TH Mr. Thibodeaux is a 51y M with hx CVA and resulting pain/ambulatory dysfunction presenting for refills on medication 1. Skin Rash-Endorses longstanding episodic rash of legs/backs of hands which responds well to prescribed creams-Mild pruritis, endorses dry skin, no skin fissures or ulcerations per patient. No purulent drainage. Responds well to cream though cannot remember name-States he 'doesnt understand phones' and cannot set up a video chat to evaluate rash2. HM-Interested in flu shot and lidocaine patch refill back pain Onset: 2 months ago. Severity level is 3. The problem is worsening. It occurs intermittently. Location of pain is lower back. Pain is radiated to the back. Context: no injury. Additional information: L hemiplegia - has been out of care with PM&R and PT due to pandemic. Using patch w/some improvement. rash The patient pres ents for rash. The symptom(s) are described as mild and occurs occasionally. Affected area(s) include both legs. The patient describes the affected area(s) as dry and itchy. Aggravating factors include dry air, heat and skin trauma/friction. Relieving factors include skin lubricants and antibiotic cream. Associated symptoms include dry skin and pruritus. Pertinent negatives include bleeding skin, cracking, crusting, edema, erythema (skin), hyperpigmentation, hypopigmentation, painful rash and scaling. Additional information: C/o dry skin on shins - occas excoriations from itching. referral request Patient wants t o get x rays of back due to his pain Home care request Requesting pillo e health aide. Has trouble dressing himself and preparing food due to chronic weakness of L arm. C/o frequent falls. Feels like knees give out . Continues to see PM[facility] at [place].Completed additional course of home PT - not doing PT currently - he feels that he didn't help him last time.Has trouble entering bathtub by himself. States he has had falls in the bathroom.Uses cane for ambulation. Didn't have cane at last in person visit - states he sometimes forgets to bring cane when in a [place]. PSA screening Asking for PSA b lood test dysuria There is no radi ation. It occurs constantly. Pertinent negatives include chills, fever, nausea, penile discharge and vomiting. Additional information: no history of stones, no history of UTIs, Several months of dysuria with abdominal pain x1 month. Nocturna x2. Endorses complete bladder emptying. No hematuria, flank pain, fevers, chills and urinary retention or frequency. Not sexually active.. telehealth This visit was c onducted via telehealth secondary to the COVID 19 pandemic. Confirmed.Chef Manager ID: [id number] Back pain f/u No cane with him today. States he doesn't need it on a daily basis - only when pain is worse. Had wheelchair previously, but strength has improved and no longer needs wheelchair.Has appointment scheduled with PM&R tomorrow to f/u re: spasticity. Hasn't started PT for back pain.Lives in [place], [place] and doesn't know if he can use [place] close to his hoome.Doesn't take baclofen because it makes him feel bad and nervous . Wants something to take for pain. Tylenol doesn't help much - he takes one tablet as needed. Liked lidocaine patches. rash f/u Requesting refil l of cream that was prescribed in the past. Thinks it was a steroid cream, which helped to resolve rash. C/o dry itchy and cracking skin on lower legs and arms. Bathing three times daily.No bleeding. No open lesions. routine f/u Needs new referr al for colonoscopy. Hasn't yet completed.Completed Pfizer vaccine series at [facility] in [place]. Chronic pain C/o chronic lowe r back pain, worse in L side.Went to ED 05/13/2021 and was discharged to home with lidocaine patches and tylenol.Per ED notes, reproducible paraspinal lumbosacral tenderness. No associated symptoms. Well-appearing with no midline TTP or new focal neurological deficits. No red flag signs c/f spinal cord compression, osteomyelitis, epidural abscess, etc. No indication for imaging or further workup at this time. Suspect musculoskeletal strain. Will discharge with supportive management and strict return precautions. States lidocaine patch did help. Requesting refills. Walks with cane. No falls in past year.Hasn't been back to PM&R since December 2019. Plan was to start botox injections for spasticity, but never returned for follow up. Telephone Visit Requests refill of steroid cream for itchy rash on lower left leg between knee and ankle. States he has had similar rash before. He was given steroid cream, which did help to resolve the rash. Bleeding when he scratches a lot. No focal lesions or bumps.Also requesting refills of multivitamin, which he should already have in the pharmacy. He will be traveling to [place] in the upcoming weeks, but does not have date of departure. Needs COVID-19 testing to travel. follow up [facility] Would like refills on MVI - discussed should be available in [facility] - he hasn't asked about them yet.Discussed recs for flu shot and may be easiest to get at pharmacy vs scheduling appt for our flu clinic.Reports eye surgery went well and is feeling well. pterygium Spoke w/pt irvin llanos forms for preop clearance re: ptyergium.Completed remainder of questions requested on the form.Confirms no h/o surgery even w/SAH/accident.No reactions to anesthesia.Patient reports no known contacts w/COVID19.No recent travel to areas with high levels of COVID19.Reports no fever, chills, shortness of breath, nor other symptoms of COVID19. form Reports he is sc heduled for right cataract surgery at [facility] 04/20/2020. He needs medical clearance.Reports h/o of left eye surgery w/o issue in the past.Smokes about 1 cigarette per day. Reports he quit drinking 2 days ago.Denies surgical or anesthesia history.Denies CP, SOB, nausea, vomiting, diarrhea, fever, dysuria, hematuria.No h/o heart disease. His stroke was hemorrhagic, secondary to head injury.Exercise tolerance and activities are limited by his left sided weakness. He is never limited by CP, SOB. Follow Up of Rash The patient pr esents for Follow Up of Rash. The symptom(s) are described as moderate, improving and occurs daily. Affected area(s) are scattered on the body including right leg. The patient describes the affected area(s) as dry, itchy and red. Denies aggravating factors. Relieving factors include topical steroids. Associated symptoms include erythema (skin) and pruritus. Additional information: Improved w/betamethasone. musculoskeletal pain Additional information: Continues to have interest in [employer]. Reviewed PM&R notes from 2018. Saw OT. Rash The patient pres ents for Rash. This episode began 2 weeks ago. The symptom(s) are described as moderate, worse and occurs daily. Affected area(s) include right leg. The patient describes the affected area(s) as dry, itchy, red, scaly and painful. Associated symptoms include dry skin, erythema (skin), pruritus and scaling. Pertinent negatives include painful rash and pharyngitis. 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 Discussed he needs to see PM&R and follow their recs before I can consider whether he is NFCE.He reports he goes to [facility] for his eyes. Doesn't know name of surgery center. Medical clearance Pt is getting a ocular surface reconstruction of OD within 1 month.Had OS done in March/April 2019 w/o complication.Form completion for pterygium removalSmokes about 1 cigarette per day.Denies complications with anesthesia by history.Denies CP, SOB, nausea, vomiting, diarrhea, fever, dysuria, hematuria.C/o epigastric pain and burning c/w GERD.No h/o heart disease. His stroke was hemorrhagic, secondary to head injury.Exercise tolerance and activities are limited by his left sided weakness. He is never limited by CP, SOB. Engaged in PT without difficulty. abdominal pain Onset: 5 Days. P ain scale: 4/10. The location is right lower quadrant and left lower quadrant. The reports radiation to the groin. The quality of the pain is achy and burning. These symptoms occur on urination. The denies relieving factors. Associated symptoms include vomiting. Pertinent negatives include back pain, bloating, blood in stool, change in appetite, constipation, diaphoresis, diarrhea, dizziness, dyspnea, eructation, fever, flank pain, flatulence, heartburn, hematuria, jaundice, lightheadedness, myalgia, nausea, rash, weight gain and weight loss. Additional information: 2 episodes of NBNB emesis; started today with pain and nausea, no diarrhea or constipation. Last BM was yesterday night, normal. Also has dysuria; no urgency or inc. freq. Other Form completion for pterygium removalSmokes about 1 cigarette per day.Denies surgical or anesthesia history.Denies CP, SOB, nausea, vomiting, diarrhea, fever, dysuria, hematuria.No h/o heart disease. His stroke was hemorrhagic, secondary to head injury.exercise tolerance and activities are limited by his left sided weakness. He is never limited by CP, SOB. Engages in PT without difficulty. Labs results Had UTI, took ab x, feels better.mildly elevated alk phos and protein on CMP.h/o alcoholism but barely drinks in the last year (few drinks at a [employer] here and there, less than monthly).h/o drug use over a year ago, snorted heroin, smoked marijuana, previously on methadone but not since arrival to [facility] over a year ago.Home nurse and PT have gone to house. He has had 3 PT sessions, feels some improvement in strength. Medical clearance clearance for pterygium removalHe c/o pain on L sidedysuria, urinary incontinence x 1 month. He has urgency, cannot make it to bathroom, wets himself sometimes. wakes up 3-4x at night to urinate, which is new.Has not followed up with PM&R or OT because of lack of transportation. That is also why he has not come here. He is here alone today. His brother in law dropped him off today.He does feel much less than pain than at last visit, and his weakness is improving. His mom helps him with some exercises at home. He is able to ambulate with cane.He does report a few falls at home, including on the stairs, without major injuries. pain. Chronic pain and insomnia: s/p SAH 6 months ago in [place]- history of opioid and alcohol dependence- was found down in home in [place] after 1-2 days of being down- has lasting hemiplegia following SAH- seen once at [facility] 5 months ago for intial visit- was referred to PM&R for chronic pain and functional assesment and asked to f/u - did not return. 3 months after intila visit at [facility] went to PM&R- was referred to OT, given rx for baclofen for spacticity and asked to return in 4 weeks- that was 9 weeks ago, has not returned. Had one visit with OT who recommended at [facility] 8 sessions to help improve mobility and decrease hypertonicity- has not returned to OT either. Here today reporting that tylenol is not helping with pain and trazadone is not helping with insomnia and baclofen from pm&r also did not help- asking for stronger meds for both pain and insomnia. Is unable to say with certainty why he didn't return to pm&r or OT. Also requesting POL[employer] COMM[employer]IONER form to be signed- Dr. Francisco Watters was awaiting OT notes before signing and asked pt to f/u stroke Onset was 1 lesly h ago. Severity: severe. Type of stroke is Hemorrhagic (subarachnoid). Type(s) of deficit: Motor - left hemiplegia. Status of deficit is fixed. Gait is characterized as hemiparetic (left). The risk factors include alcoholism. stroke (comments) 47 y/o M prese nts w/his mother and adult niece who report he was found down in March 2018 [place] (presumbably for about 1 day) by a friend in his home. Friend called ambulance and pt was brought to the hospital - h/o chronic alcoholism, h/o methadone maintenance for h/o opioid addiction - dx w/intracranial hemorrhage, SAH, s/p rhabdomyolysis, s/p UTI, alcoholic hepatitis, pulmonary contusion, decubitus ulcer on his lower back, PNA, and generalized weakness. Received PT, OT at [facility] rehab facility in [facility]. His family brought him from [place] about 2[place]3 wks ago. He is living with his mother here. His niece cares for him. He tries to walk but fell down stairs due to his left sided weakness. Uses wheelchair. Unable to lift L arm/leg? unclear how he was trying to walk. Hasn't used opioids or alcohol since CVA. Denies cravings. Reports entire body pain - not just left side and not described as parasthesias/tingling/numbess. Points to all joints as painful. Reports receiving pain meds (unclear what) in [place] and something for sleep - unclear what. Reports persistent insomnia but denies depression/anxiety/SI/HI. Actually very happy to be reunited w/his Mom. They hadn't spoken/seen each other in 20 yrs. Functional Status Date Functional Assessmen t No Information Instructions Date Instruction Additional Infor ceci keep area clean and dryapply cream twice a daywash hands after applying the creamfollow up w pcp in 3 weeks Related to Rash Assessments Type Assessment Date No Information Patient Care Teams Name Effective Dates (start - stop) Status Members No Information
[2025-03-09 18:55] LABS: Alanine Aminotransferase 30 U/L (0-40); Albumin Level 4.2 g/dL (3.5-5.0); Alkaline Phosphatase 73 U/L (39-117); Anion Gap 13 (12-20); Aspartate Amino Transferase 30 U/L (5-37); Bilirubin Total 0.6 mg/dL (0.0-1.0); Blood Urea Nitrogen 11 mg/dL (9-16); Carbon Dioxide 28 mmol/L (22-29); Chloride 105 mmol/L (96-108); Cholesterol 192 mg/dL (<200); Estimated Glomerular Filt Rate > 60; Glucose Random 142 mg/dL (60-115); HDL Cholesterol 36 mg/dL (>40); LDL Cholesterol Calculated 120 mg/dL (<100); Potassium 3.8 mmol/L (3.3-5.1); Sodium 142 mmol/L (135-145); Total Protein 7.1 g/dL (6.5-8.0); Triglycerides 183 mg/dL (<150)
== END 2025-03-09 14:09 | disposition home or self-care (01) ==
LOC: HO.CHCLDS 14:08
PROVIDERS: Visit Provider Internal Medicine
DX: I10 Essential (primary) hypertension (principal); E78.00 Pure hypercholesterolemia, unspecified; M25.512 Pain in left shoulder
CPT/HCPCS: 36415; 73030; 80053; 80061

== ENCOUNTER → 2025-03-09 14:34 | Outpatient (BNV) | payer MEDICAID, SELFPAY | PROVIDERS: Visit Provider Radiology Diagnostic Radiology | DX: M25.512 Pain in left shoulder (principal); W19.XXXA Unspecified fall, initial encounter | CPT/HCPCS: 73030 ==

== ENCOUNTER 2025-05-17 08:54 | Outpatient (REF) | payer MEDICAID, SELFPAY ==
--- OUTSIDE RECORDS SUMMARY | 2025-05-17 09:06 | XMS_ITS | Clinical Summary ---
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
--- OUTSIDE RECORDS SUMMARY | 2025-05-17 09:06 | XMS_ITS | Encounter Summary ---
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 Helper Name Role Phone Angel Campbell MD Primary Care Provider [phone] Encounter Details Date Type Department Care Team ([facility] st Contact Info) Description 06/29/2024 Orders Only [facility] [address] [place], [place] [id number] Angel Campbell MD [address] [place] [address] Social History Tobacco Use Types Packs/Day Years [...] documented as of this encounter Care Teams Hot Metal Mixer Operator Helper Relationship Specialty Start Date End Date Angel Campbell MD [address] [place] [id number] PCP - General Internal Medicine 12/05/17 documented as of this encounter
--- OUTSIDE RECORDS SUMMARY | 2025-05-17 09:06 | XMS_ITS | Clinical Summary ---
Author Organization [address] Address [address] [place] [phone] Phone Care Team Providers Care Yield Analyst Name Role Phone No, Pcp (Do Not [...] 84 05/07/2017 10:27 PM EDT Temperature 36.7 C (98 F) 05/07/2017 10:27 PM EDT Respiratory Rate 16 [...] Series) 2019 Covid-19 vaccine series ( - 2023- season) 2024 Influenza vaccine 07/05/2025 RSV Immunization (1 - 1-dose 75+ series) 2044 Meningococcal Vaccine Aged Out No eliseo ray eligible based on patient's age to complete this topic Insurance [employer] Member Subscriber Plan / Payer (Ef fective 2017-Present) Name:Martínez Thibodeaux Relation to Subscriber:Self Name:Martínez Thibodeaux Payer ID:[id number] Group ID:Not on file Type:Not on file [phone] Address: [address] [facility] [place] [address] [employer] Member Subscriber Plan / Payer (Ef fective 2017-Present) Name:Martínez Thibodeaux Relation to Subscriber:Self Name:Martínez Thibodeaux Payer ID:[id number] Group ID:Not on file Type:Not on file [phone] Address: [address] [facility] [place] [address] [employer] Member Subscriber Plan / Payer (Ef fective 2017-Present) Name:Martínez Thibodeaux Relation to Subscriber:Self Name:Martínez Thibodeaux Payer ID:[id number] Group ID:Not on file Type:Not on file [phone] Address: [address] [place] [address] Care Teams Yield Analyst Relationship Specialty Start Date End Date No, Pcp (Do Not Change Name) PCP - General 05/07/17
[2025-05-17 09:39] LABS: MANUAL DIFF FLAG NO
[2025-05-17 09:49] LABS: Hematocrit 37.4 % (42.0-52.0); Hemoglobin 12.7 g/dl (14.0-18.0); Imm Gran Abs Auto 0.03 X10*3/uL (0.00-0.03); Imm Gran Pct Auto 0.6 % (0.0-0.4); Lymphocytes Absolute Auto 2.3 X10*3/uL (1.2-4.9); Mean Corpuscular HGB Conc 34.0 g/dl (31.0-36.0); Mean Corpuscular Hemoglobin 31.5 pg (27.0-33.0); Mean Corpuscular Volume 92.8 fL (80.0-98.0); NRBC Abs Auto 0.000 X10*3/uL (0.0-0.012); NRBC Pct Auto 0.0 /100WBC (0.0-0.2); Platelet Count 235 X10*3/uL (160-400); Red Blood Count 4.03 X10*6/uL (4.60-5.80); White Blood Count 5.5 X10*3/uL (4.8-10.8)
[2025-05-17 13:37] LABS: Alanine Aminotransferase 20 U/L (0-40); Albumin Level 4.2 g/dL (3.5-5.0); Alkaline Phosphatase 70 U/L (39-117); Anion Gap 8 (12-20); Aspartate Amino Transferase 22 U/L (5-37); Blood Urea Nitrogen 15 mg/dL (9-16); Calcium 8.9 mg/dL (8.4-10.2); Carbon Dioxide 29 mmol/L (22-29); Chloride 109 mmol/L (96-108); Cholesterol 187 mg/dL (<200); Estimated Glomerular Filt Rate > 60; HDL Cholesterol 41 mg/dL (>40); Potassium 4.1 mmol/L (3.3-5.1); Sodium 142 mmol/L (135-145); Total Protein 7.1 g/dL (6.5-8.0); Triglycerides 110 mg/dL (<150); Uric Acid 9.1 mg/dL (3.4-7.0)
== END 2025-05-17 08:55 | disposition home or self-care (01) ==
LOC: HO.10HDL 08:54
PROVIDERS: Visit Provider Student in an Organized Health Care Education/Training Program
DX: M1A.09X1 Idiopathic chronic gout, multiple sites, with tophus (tophi) (principal); E78.00 Pure hypercholesterolemia, unspecified
CPT/HCPCS: 36415; 80053; 80061; 84550; 85025; 85652; 86140

== ENCOUNTER 2025-05-19 14:01 | Outpatient (AMB) | payer MEDICAID, SELFPAY ==
--- NOTE | 2025-05-19 14:03 | A.OFFVIS_ITS ---
Vital Signs 05/19/25 14:09 Height 5 ft 7 in Weight 195 lb 5.273 oz BMI 30.6 BP 130/80 Blood Pressure Location Lt brachial Position Sitting Pulse 74 Pulse Source Pulse Oximeter Pulse Oximetry (%) 94 Oxygen Delivery Method Room Air Intake Visit Reasons: Gout Intake Note: Patient presents for Gout follow up. Coremaker Bench Required: Yes Coremaker Bench Language: Roving Department Supervisor Services: Coremaker Bench Offered & Declined Coremaker Bench Name: Isabel Reese Information Interpreted: non-clinical & clinical Accompanied by: Spouse Allergies No Known Allergies Allergy (Verified 05/19/25 14:08) Medication List - Last Reconciled 05/19/25 by Asuncion Newsome MD allopurinol 300 mg PO DAILY amlodipine 5 mg PO DAILY bisacodyl (Dulcolax (bisacodyl)) 10 mg (2 x 5 mg) PO ONCE 1 day celecoxib 200 mg PO colchicine 0.6 mg PO DAILY famotidine 20 mg PO BEDTIME polyethylene glycol 3350 (Miralax) 238 grams PO ONCE prednisone 5 - 10 mg (1 - 2 x 5 mg) PO DAILY PRN rosuvastatin 10 mg PO DAILY HPI Comments Details: Patient is a 54 y.o. male with HTN, HLD, polyarticular OA and non crystal proven tophaceous gout Interval History: Patient last seen 08/04/24 - On allopurinol 300mg bid and doing well Today, - Stopped taking allopurinol and colchicine - Unclear the reasoning behind the stop Rheumatologic History: Gout right middle finger mass that was excised, pathology consistent with gouty tophus Initial history: This is a 53-year-old male who presents for gout evaluation. He was referred by hand surgery. Four months ago patient was evaluated by hand surgery for swelling in his right middle finger. Pathology showed gout tophus. Patient is not a good historian. He states that he believes he started having gout attacks affecting his ankles, feet, left knee and right hand 5-10 years ago. Stated that he was diagnosed with gout 5 years ago. Does not recall whether he was ever put on specific treatment for gout. States that currently he gets gout flare-ups every 1-2 weeks and the last few days. Currently they affect his right hand, right wrist and left knee. Per he also is having an open wound that drains chalky material in his left big toe. He denies any history of kidney stones. States that he drinks only on occasion such as Jose. 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 Review of Systems Const Details: Review of Systems Constitutional: Denies fever, chills, weight loss ENT: Denies vision changes, eye pain or eye redness, dental caries, dry mouth GI: Denies nausea, vomiting, diarrhea, abdominal pain, change in BM Pulm: Denies SOB, DAMON, hemoptysis, wheezing Cards: Denies chest pain, palpitations Skin: Denies Raynaud's, rash, nail changes, photosensitivity, PHYSICAL TRAINER: Denies headaches, weakness, paresthesias, recurrent falls MSK: as per HPI All other systems reviewed and are unremarkable except noted above Physical Exam Vital Signs: Last Vital Signs Pulse 74 05/19/25 14:09 BP 130/80 05/19/25 14:09 Pulse Ox 94 05/19/25 14:09 Oxygen Delivery Method Room Air 05/19/25 14:09 BMI result Body Mass Index 30.6 Vital signs reviewed Physical Examination CONSTITUITIONAL Patient alert and cooperative. Well appearing and in no apparent painful distress MSK Hands * Right Hand: Able to make a fist. No swelling or tenderness to palpation of these joints. * Left Hand: Deformities noted, congenital Wrists * Right Wrist: Full ROM. 70 degrees of wrist flexion, 80 degrees of wrist extension. No swelling or TTP * Left Wrist: Full ROM. 70 degrees of wrist flexion, 80 degrees of wrist extension. No swelling or TTP Elbows * Right Elbow: Full ROM. No swelling or TTP. No TTP of the medial and lateral epicondyles * Left Elbow: Full ROM. No swelling or TTP. No TTP of the medial and lateral epicondyles Shoulders * Right shoulder: Full ROM. No swelling noted. No TTP of the AC joint, subacromial bursa or posterior shoulder * Left shoulder: Decreased ROM. No swelling noted. No TTP of the AC joint, subacromial bursa or posterior shoulder Knees * Right knee: Full ROM. No swelling noted. No TTP of the knee joint lie or pes anserine bursa * Left knee: Full ROM. No swelling noted. No TTP of the knee joint lie or pes anserine bursa. Ankles * Right ankle: Good ankle dorsiflexion and plantar flexion. No swelling. No TTP of the ankle joint * Left ankle: Good ankle dorsiflexion and plantar flexion. No swelling. No TTP of the ankle joint. Tophi noted over the achilles tendon Feet * Right foot: Negative squeeze test * Left foot: Negative squeeze test Tender points? * No tenderness to palpation of the bilateral trapezius, supraspinatus, anterior costochondral junctions, bilateral suboccipital muscle insertions SKIN No rashes Results Reviewed Results Reviewed: Laboratory Tests 05/17/25 09:00 WBC 5.5 RBC 4.03 L Hgb 12.7 L Hct 37.4 L Plt Count 235 ESR 7 Sodium 142 Potassium 4.1 Chloride 109 H Carbon Dioxide 29 BUN 15 Creatinine 0.87 Uric Acid 9.1 H AST 22 ALT 20 Alkaline Phosphatase 70 C-Reactive Protein < 0.10 Laboratory Tests 11/07/23 08:30 HLA-B*[id number] Negative XR Left Shoulder 03/2025 FINDINGS: Normal bone mineralization. No fracture, dislocation, or suspicious bone lesion. Normal alignment. The glenohumeral joint demonstrates mild degenerative arthritis. The AC joint demonstrates mild undersurface and superior surface spurring. There is a neutral lateral acromion. Small undersurface spurs. The subacromial space is preserved. Remainder of the soft tissue and bony structures appear normal. IMPRESSION: No acute bony abnormalities. Mild degenerative findings left shoulder. Assessment & Plan Assessment & Plan (1) Gout: Comment: right middle finger mass that was excised, pathology consistent with gouty tophus Code(s): M10.9 - Gout, unspecified Category: Medical Qualifiers: Gout site: multiple sites Gout etiology: idiopathic Chronicity: chronic Presence of tophus: with tophus Qualified Code(s): M1A.09X1 - Idiopathic chronic gout, multiple sites, with tophus (tophi) Plan: #Tophaceous gout Patient is a 54 y.o. male with tophaceous gout here today for follow up. Currently not on allopurinol with elevated uric acid Discussed with patient and his the importance of compliance Plan - Allopurinol 300mg daily - Colchicine 0.6mg daily - Prednisone 5-10mg prn for flares - RTC 3 months - Labs before visit: CBC, CMP, ESR, CRP, Uric acid (2) On allopurinol therapy: Code(s): Z79.899 - Other circulation sales representative (current) drug therapy Category: Medical Plan: #Long-term Current Use of Allopurinol Risks and benefits of allopurinol discussed with patient Benefits include decreased gout flares, remission of gout and reduction of tophi Risks include allopurinol hypersensitivity syndrome which is a severe cutaneous adverse reaction associated with allopurinol use particularly in patients who are HLA B*5801 positive, increased transaminases, GI upset including diarrhea, nausea and vomiting, and other dermatologic manifestations. Plan I spent 33 minutes reviewing the record and labs, taking a history, examining the patient, discussing the treatment plan, ordering diagnostic work up and documenting in the medical record Orders: Orders Complete Blood Count Auto Diff 3 Months M1A.09X1 - Idiopathic chronic gout, multiple sites, with tophus (tophi) C Reactive Protein 3 Months M1A.09X1 - Idiopathic chronic gout, multiple sites, with tophus (tophi) Erythrocyte Sedimentation Rate 3 Months M1A.09X1 - Idiopathic chronic gout, multiple sites, with tophus (tophi) Comprehensive Met. Panel 3 Months M1A.09X1 - Idiopathic chronic gout, multiple sites, with tophus (tophi) Uric Acid 3 Months M1A.09X1 - Idiopathic chronic gout, multiple sites, with tophus (tophi) Medications: Refilled allopurinol 300 mg PO DAILY 90 tabs 1RF colchicine 0.6 mg PO DAILY 90 tabs 1RF prednisone 5 - 10 mg (1 - 2 x 5 mg) PO DAILY PRN 30 tabs 0RF for swelling M1A.09X1 - Idiopathic chronic gout, multiple sites, with tophus (tophi) Coding Level of Care Code Est Pt Level 4 (52050) Complex EM visit Add On G2211 Diagnoses Idiopathic chronic gout of multiple sites with tophus M1A.09X1 Gout site: multiple sites Gout etiology: idiopathic Chronicity: chronic Presence of tophus: with tophus On allopurinol therapy Z79.899
[2025-05-19 14:09] VITALS: BP 130/80; PULSE 74; O2SAT 94; BMI 30.6
--- OUTSIDE RECORDS SUMMARY | 2025-05-19 14:49 | XMS_ITS | Clinical Summary ---
Author Organization [facility] it Address [address] [place] [address] Care Team Providers Care Emergency Veterinary Technician Name Role Phone Unavailable Primary Care Provider [...]
--- OUTSIDE RECORDS SUMMARY | 2025-05-19 14:49 | XMS_ITS | Clinical Summary ---
Author Organization [address] Address [address] [place] [phone] Phone Care Team Providers Care Oliver Filter Operator Name Role Phone No, Pcp (Do Not [...] Thibodeaux Relation to Subscriber:Self Name:Martínez Thibodeaux Payer ID:[id number] Group ID:Not on file Type:Not on file [phone] Address: [address] [facility] [place] [address] [employer] Member Subscriber Plan / Payer (Ef fective 2017-Present) Name:Martínez Thibodeaux Relation to Subscriber:Self Name:Martínez Thibodeaux Payer ID:[id number] Group ID:Not on file Type:Not on file [phone] Address: [address] [facility] [place] [address] [employer] Member Subscriber Plan / Payer (Ef fective 2017-Present) Name:Martínez Thibodeaux Relation to Subscriber:Self Name:Martínez Thibodeaux Payer ID:[id number] Group ID:Not on file Type:Not on file [phone] Address: [address] [place] [address] Care Teams Oliver Filter Operator Relationship Specialty Start Date End Date No, Pcp (Do Not Change Name) PCP - General 05/07/17
--- OUTSIDE RECORDS SUMMARY | 2025-05-19 14:49 | XMS_ITS | Encounter Summary ---
Author Organization [employer] Address [address] [place] [address] [address] [place] [address] Care Team Providers Care Operations Systems Specialist Name Role Phone Angel Campbell MD Primary Care Provider [phone] Encounter Details Date Type Department Care Team ([facility] st Contact Info) Description 06/29/2024 Orders Only [facility] [address], [place] [phone] Angel Campbell MD [address] [place] [address] Social History Tobacco Use Types Packs/Day Years [...] as of this encounter Plan of Treatment Upcoming Encounters Date Type Department Care Team (Late st Contact Info) Description 07/22/2025 2:00 PM EDT Office Visit [facility] [address] [place] [address] Angel Campbell MD [address] [place] [address] documented as of this encounter Visit Diagnoses Not on filedocumented in this encounter Additional Health Concerns Assessment Noted Time PHQ-9 Depression Total Score: 1 06/24/20 24 11:57 AM EDT documented as of this encounter Care Teams Operations Systems Specialist Relationship Specialty Start Date End Date Angel Campbell MD [address] [place] [address] PCP - General Internal Medicine 12/05/17 documented as of this encounter
== END 2025-05-19 14:31 | disposition home or self-care (01) ==
LOC: HO.RHE 14:02
PROVIDERS: PCP Internal Medicine; Visit Provider Student in an Organized Health Care Education/Training Program
DX: M1A.09X1 Idiopathic chronic gout, multiple sites, with tophus (tophi) (principal); Z79.899 Other long term (current) drug therapy
CPT/HCPCS: 99214

== ENCOUNTER → 2025-05-19 14:01 | Outpatient (BNVA) | payer MEDICAID, SELFPAY | PROVIDERS: PCP Internal Medicine; Visit Provider Student in an Organized Health Care Education/Training Program | DX: M1A.09X1 Idiopathic chronic gout, multiple sites, with tophus (tophi) (principal); Z79.52 Long term (current) use of systemic steroids; Z79.899 Other long term (current) drug therapy | CPT/HCPCS: 99212 ==